=== PATIENT | female | born 1950 | race Caucasian/White ===

== ENCOUNTER 2016-02-26 11:08 | Emergency (ER) | payer MEDICAID ==
[2014-01-18 00:33] VITALS: BMI 28.4
[~2016-02-26 11:08] MED LIST: ACETAMINOPHEN500 M1 PO; COREG25 MG PO; CYMBALTA60 MG PO; DURAGESIC1 PATCH .1 TRANSDERM; FOLIC ACID1 MG PO; LASIX40 MG PO; LIBRIUM25 MG PO; LYRICA150 MG PO; MOBIC7.5 MG PO; PHENERGAN25 M1 PO; PLAQUENIL200 MG PO; SYNTHROID112 MCG PO; VITAMIN B-1100 M1 PO; ZOFRAN4 MG PO
[2016-02-26 11:54] LABS: AMORPHOUS SEDIMENT >1+ /lpf (NONE SEEN); APPEARANCE CLEAR (CLEAR); BACTERIA FEW /hpf (NONE SEEN); BILIRUBIN NEGATIVE (NEGATIVE); COLOR YELLOW (YELLOW); EPITHELIAL CELLS 0-5 /hpf (0-5); GLUCOSE NEGATIVE (NEGATIVE); KETONE MODERATE mg/dL (NEGATIVE); LEUKOCYTE ESTERASE NEGATIVE (NEGATIVE); MUCUS <1+ /lpf (NONE SEEN); NITRITE NEGATIVE (NEGATIVE); PROTEIN TRACE mg/dL (NEGATIVE); RED CELLS - URINE 0-5 /hpf (0-5); SPECIFIC GRAVITY 1.015 (1.005-1.020); UROBILINOGEN NORMAL (NORMAL); WHITE CELLS - URINE OCC /hpf (0-5)
[2016-02-26 11:55] LABS: BASOPHILS 0.7 % (0.0-2.0); EOSINOPHILS 0.4 % (0-7); HEMATOCRIT 44.6 % (36.0-48.0); HEMOGLOBIN 15.2 g/dL (12-16); IMMATURE GRANULOCYTES 0.4 % (0-5); LYMPHOCYTES 17.3 % (15-50); MCH 32.1 pg (26.0-34.0); MCHC 34.1 g/dL (31.0-37.0); MCV 94.3 fL (80.0-100.0); MEAN PLATELET VOLUME 9.6 fL (7.4-10.4); MONOCYTES 8.9 % (2-11); NEUTROPHILS 72.3 % (40-80); RBC 4.73 10x6/uL (4.00-5.40); RDW 11.5 % (11.5-14.5); WBC 9.8 10x3/uL (4.8-10.8)
[2016-02-26 11:57] LABS: PLATELET COUNT 224 10x3/uL (130-400)
[2016-02-26 12:22] LABS: ALBUMIN 4.1 g/dL (3.4-5.0); ALKALINE PHOSPHATASE 76 U/L (46-116); ALT (SGPT) 119 U/L (10-68); BILIRUBIN - TOTAL 0.59 mg/dL (0.2-1.3); CALC OSMOLALITY 269 mosm/kg (275-300); CALCIUM 9.2 mg/dL (8.5-10.1); CARBON DIOXIDE 25.2 mmol/L (21.0-32.0); CHLORIDE - SERUM 91 mmol/L (98-107); CREATININE - SERUM 0.7 mg/dL (0.6-1.3); POTASSIUM - SERUM 3.2 mmol/L (3.5-5.1); PROTEIN - SERUM 6.9 g/dL (6.4-8.2); SODIUM 135 mmol/L (136-145); UREA NITROGEN 22 mg/dL (7-18); eGFR NON AFRICAN AMERICAN 89 mL/min (90-120)
[2016-02-26 12:28] LABS: GLUCOSE 41 mg/dL (74-106)
== END 2016-02-26 17:44 | disposition home or self-care (01) ==
LOC: D.ER 11:08
PROVIDERS: Emergency Medicine; Physician Assistant Medical
DX: I95.9 Hypotension, unspecified (principal); E86.0 Dehydration; E16.2 Hypoglycemia, unspecified; M79.7 Fibromyalgia; E05.90 Thyrotoxicosis, unspecified without thyrotoxic crisis or storm; I10 Essential (primary) hypertension

== ENCOUNTER → 2016-03-06 09:47 | Outpatient (CLI) | payer MEDICAID ==
[2014-01-18 00:33] VITALS: BMI 28.4
== END | disposition home or self-care (01) ==
LOC: D.MRI 09:47
DX: R42 Dizziness and giddiness (principal)

== ENCOUNTER 2016-04-04 17:25 | Emergency (ER) | payer MEDICAID ==
[2014-01-18 00:33] VITALS: BMI 28.4
[2016-04-04 18:34] LABS: BASOPHILS 1.4 % (0.0-2.0); EOSINOPHILS 0.8 % (0-7); HEMATOCRIT 41.5 % (36.0-48.0); HEMOGLOBIN 14.2 g/dL (12-16); IMMATURE GRANULOCYTES 0.6 % (0-5); MCH 33.6 pg (26.0-34.0); MCHC 34.2 g/dL (31.0-37.0); MCV 98.3 fL (80.0-100.0); MEAN PLATELET VOLUME 8.9 fL (7.4-10.4); MONOCYTES 6.8 % (2-11); NEUTROPHILS 66.4 % (40-80); PLATELET COUNT 214 10x3/uL (130-400); RBC 4.22 10x6/uL (4.00-5.40); RDW 14.6 % (11.5-14.5); WBC 6.5 10x3/uL (4.8-10.8)
[2016-04-04 19:22] LABS: ALBUMIN 3.8 g/dL (3.4-5.0); ALKALINE PHOSPHATASE 166 U/L (46-116); ALT (SGPT) 187 U/L (10-68); BILIRUBIN - TOTAL 0.28 mg/dL (0.2-1.3); CALC OSMOLALITY 286 mosm/kg (275-300); CALCIUM 8.7 mg/dL (8.5-10.1); CHLORIDE - SERUM 102 mmol/L (98-107); CREATININE - SERUM 0.5 mg/dL (0.6-1.3); POTASSIUM - SERUM 3.4 mmol/L (3.5-5.1); PROTEIN - SERUM 6.4 g/dL (6.4-8.2); SODIUM 144 mmol/L (136-145); UREA NITROGEN 11 mg/dL (7-18); eGFR NON AFRICAN AMERICAN > 90 mL/min (90-120)
[2016-04-04 19:24] LABS: GLUCOSE 115 mg/dL (74-106)
[2016-04-04 22:59] LABS: APPEARANCE CLEAR (CLEAR); BILIRUBIN NEGATIVE (NEGATIVE); COLOR YELLOW (YELLOW); GLUCOSE NEGATIVE (NEGATIVE); KETONE NEGATIVE (NEGATIVE); LEUKOCYTE ESTERASE NEGATIVE (NEGATIVE); NITRITE NEGATIVE (NEGATIVE); PROTEIN NEGATIVE (NEGATIVE); SPECIFIC GRAVITY 1.015 (1.005-1.020); UROBILINOGEN NORMAL (NORMAL)
== END 2016-04-05 00:30 | disposition home or self-care (01) ==
LOC: D.ER 17:25
PROVIDERS: Family Medicine
DX: F10.10 Alcohol abuse, uncomplicated (principal); F32.9 Major depressive disorder, single episode, unspecified; E83.42 Hypomagnesemia; E87.6 Hypokalemia; M79.7 Fibromyalgia; I10 Essential (primary) hypertension; E05.90 Thyrotoxicosis, unspecified without thyrotoxic crisis or storm; F17.200 Nicotine dependence, unspecified, uncomplicated

== ENCOUNTER 2016-04-09 12:56 | Emergency (ER) | payer MEDICAID ==
[2014-01-18 00:33] VITALS: BMI 28.4
[2016-04-09 14:24] LABS: BASOPHILS 0.2 % (0.0-2.0); EOSINOPHILS 0.1 % (0-7); HEMATOCRIT 42.4 % (36.0-48.0); HEMOGLOBIN 14.3 g/dL (12-16); IMMATURE GRANULOCYTES 0.3 % (0-5); MCH 33.8 pg (26.0-34.0); MCHC 33.7 g/dL (31.0-37.0); MCV 100.2 fL (80.0-100.0); MEAN PLATELET VOLUME 9.6 fL (7.4-10.4); MONOCYTES 5.9 % (2-11); NEUTROPHILS 87.5 % (40-80); PLATELET COUNT 188 10x3/uL (130-400); RBC 4.23 10x6/uL (4.00-5.40); RDW 15.6 % (11.5-14.5); WBC 14.6 10x3/uL (4.8-10.8)
[2016-04-09 14:33] LABS: ALBUMIN 3.9 g/dL (3.4-5.0); ALKALINE PHOSPHATASE 120 U/L (46-116); ALT (SGPT) 137 U/L (10-68); BILIRUBIN - TOTAL 0.37 mg/dL (0.2-1.3); CALC OSMOLALITY 283 mosm/kg (275-300); CALCIUM 8.6 mg/dL (8.5-10.1); CARBON DIOXIDE 28.2 mmol/L (21.0-32.0); CHLORIDE - SERUM 102 mmol/L (98-107); CREATININE - SERUM 0.5 mg/dL (0.6-1.3); GLUCOSE 79 mg/dL (74-106); POTASSIUM - SERUM 4.2 mmol/L (3.5-5.1); PROTEIN - SERUM 6.7 g/dL (6.4-8.2); SODIUM 143 mmol/L (136-145); UREA NITROGEN 13 mg/dL (7-18); eGFR NON AFRICAN AMERICAN > 90 mL/min (90-120)
== END 2016-04-09 20:42 | disposition home or self-care (01) ==
LOC: D.ER 12:56
PROVIDERS: Physician Assistant
DX: T23.201A Burn of second degree of right hand, unspecified site, initial encounter (principal); T22.20XA Burn of second degree of shoulder and upper limb, except wrist and hand, unspecified site, initial encounter; T21.22XA Burn of second degree of abdominal wall, initial encounter; X16.XXXA Contact with hot heating appliances, radiators and pipes, initial encounter; Y93.89 Activity, other specified; Y92.012 Bathroom of single-family (private) house as the place of occurrence of the external cause; S01.81XA Laceration without foreign body of other part of head, initial encounter; M54.5 Low back pain; R22.9 Localized swelling, mass and lump, unspecified; F10.10 Alcohol abuse, uncomplicated; F32.9 Major depressive disorder, single episode, unspecified; I10 Essential (primary) hypertension; E05.90 Thyrotoxicosis, unspecified without thyrotoxic crisis or storm; E83.42 Hypomagnesemia; E87.6 Hypokalemia; F17.200 Nicotine dependence, unspecified, uncomplicated

== ENCOUNTER → 2016-04-23 16:48 | Outpatient (CLI) | payer MEDICAID ==
[2014-01-18 00:33] VITALS: BMI 28.4
[2016-04-23 21:13] LABS: CALC OSMOLALITY 279 mosm/kg (275-300); CARBON DIOXIDE 29.9 mmol/L (21.0-32.0); CHLORIDE - SERUM 99 mmol/L (98-107); CREATININE - SERUM 0.6 mg/dL (0.6-1.3); GLUCOSE 70 mg/dL (74-106); POTASSIUM - SERUM 5.3 mmol/L (3.5-5.1); SODIUM 141 mmol/L (136-145); UREA NITROGEN 14 mg/dL (7-18); eGFR NON AFRICAN AMERICAN > 90 mL/min (90-120)
== END | disposition home or self-care (01) ==
LOC: D.LABREF 16:48
PROVIDERS: Family Medicine
DX: T30.0 Burn of unspecified body region, unspecified degree (principal)

== ENCOUNTER → 2016-04-29 14:47 | Outpatient (CLI) | payer OTHER, MEDICAID ==
[2014-01-18 00:33] VITALS: BMI 28.4
[2016-04-29 16:00] LABS: CALC OSMOLALITY 283 mosm/kg (275-300); CALCIUM 8.6 mg/dL (8.5-10.1); CARBON DIOXIDE 30.3 mmol/L (21.0-32.0); CHLORIDE - SERUM 104 mmol/L (98-107); CREATININE - SERUM 0.5 mg/dL (0.6-1.3); GLUCOSE 71 mg/dL (74-106); POTASSIUM - SERUM 4.1 mmol/L (3.5-5.1); SODIUM 143 mmol/L (136-145); UREA NITROGEN 14 mg/dL (7-18); eGFR NON AFRICAN AMERICAN > 90 mL/min (90-120)
== END | disposition home or self-care (01) ==
LOC: D.LABREF 14:47
PROVIDERS: Family Medicine
DX: T22.031A Burn of unspecified degree of right upper arm, initial encounter (principal); T23.201A Burn of second degree of right hand, unspecified site, initial encounter; I10 Essential (primary) hypertension

== ENCOUNTER 2016-05-13 16:33 | Emergency (ER) | payer MEDICARE, MEDICAID ==
[2014-01-18 00:33] VITALS: BMI 28.4
[2016-05-13 17:17] LABS: BASOPHILS 0.7 % (0.0-2.0); EOSINOPHILS 0.3 % (0-7); HEMATOCRIT 35.3 % (36.0-48.0); HEMOGLOBIN 12.2 g/dL (12-16); IMMATURE GRANULOCYTES 0.9 % (0-5); LYMPHOCYTES 28.4 % (15-50); MCH 33.6 pg (26.0-34.0); MCHC 34.6 g/dL (31.0-37.0); MCV 97.2 fL (80.0-100.0); MEAN PLATELET VOLUME 9.3 fL (7.4-10.4); NEUTROPHILS 63.7 % (40-80); RBC 3.63 10x6/uL (4.00-5.40); RDW 14.7 % (11.5-14.5)
[2016-05-13 17:23] LABS: PLATELET COUNT 246 10x3/uL (130-400)
[2016-05-13 17:39] LABS: APPEARANCE CLOUDY (CLEAR); BILIRUBIN NEGATIVE (NEGATIVE); COLOR YELLOW (YELLOW); GLUCOSE NEGATIVE (NEGATIVE); KETONE MODERATE mg/dL (NEGATIVE); LEUKOCYTE ESTERASE 2+ (NEGATIVE); NITRITE POSITIVE (NEGATIVE); PROTEIN TRACE mg/dL (NEGATIVE); SPECIFIC GRAVITY 1.015 (1.005-1.020); UROBILINOGEN NORMAL (NORMAL)
[2016-05-13 17:41] LABS: BACTERIA MODERATE /hpf (NONE SEEN); RED CELLS - URINE 0-5 /hpf (0-5); WHITE CELLS - URINE 25-50 /hpf (0-5)
[2016-05-13 17:43] LABS: UDS - AMPHET NEGATIVE QUAL (NEGATIVE); UDS - BARB NEGATIVE QUAL (NEGATIVE); UDS - BENZO POSITIVE QUAL (NEGATIVE); UDS - COCAINE NEGATIVE QUAL (NEGATIVE); UDS - METH NEGATIVE QUAL (NEGATIVE); UDS - OPIATE NEGATIVE QUAL (NEGATIVE); UDS - PCP NEGATIVE QUAL (NEGATIVE); UDS - THC NEGATIVE QUAL (NEGATIVE)
[2016-05-13 17:58] LABS: ALBUMIN 3.2 g/dL (3.4-5.0); ALKALINE PHOSPHATASE 84 U/L (46-116); ALT (SGPT) 35 U/L (10-68); BILIRUBIN - TOTAL 0.26 mg/dL (0.2-1.3); CALC OSMOLALITY 276 mosm/kg (275-300); CALCIUM 8.6 mg/dL (8.5-10.1); CARBON DIOXIDE 27.5 mmol/L (21.0-32.0); CHLORIDE - SERUM 100 mmol/L (98-107); CREATININE - SERUM 0.5 mg/dL (0.6-1.3); GLUCOSE 83 mg/dL (74-106); POTASSIUM - SERUM 3.2 mmol/L (3.5-5.1); SODIUM 140 mmol/L (136-145); UREA NITROGEN 10 mg/dL (7-18); eGFR NON AFRICAN AMERICAN > 90 mL/min (90-120)
[2016-05-13 18:06] LABS: INR 0.9 (0.85-1.17)
== END 2016-05-14 00:57 | disposition home or self-care (01) ==
LOC: D.ER 16:33
PROVIDERS: Emergency Medicine
DX: F10.129 Alcohol abuse with intoxication, unspecified (principal); N39.0 Urinary tract infection, site not specified; Z91.81 History of falling; M79.7 Fibromyalgia; I10 Essential (primary) hypertension; E87.6 Hypokalemia; E83.42 Hypomagnesemia; R00.0 Tachycardia, unspecified

== ENCOUNTER 2016-05-14 19:40 | Emergency (ER) | payer MEDICARE, MEDICAID ==
[2014-01-18 00:33] VITALS: BMI 28.4
[2016-05-14 20:37] LABS: ALBUMIN 3.6 g/dL (3.4-5.0); ALKALINE PHOSPHATASE 94 U/L (46-116); ALT (SGPT) 41 U/L (10-68); BILIRUBIN - TOTAL 0.25 mg/dL (0.2-1.3); CALCIUM 8.4 mg/dL (8.5-10.1); CARBON DIOXIDE 27.3 mmol/L (21.0-32.0); CHLORIDE - SERUM 104 mmol/L (98-107); CREATININE - SERUM 0.5 mg/dL (0.6-1.3); GLUCOSE 84 mg/dL (74-106); POTASSIUM - SERUM 3.3 mmol/L (3.5-5.1); PROTEIN - SERUM 6.6 g/dL (6.4-8.2); SODIUM 147 mmol/L (136-145); eGFR NON AFRICAN AMERICAN > 90 mL/min (90-120)
[2016-05-14 20:39] LABS: CALC OSMOLALITY 288 mosm/kg (275-300); UREA NITROGEN 6 mg/dL (7-18)
[2016-05-14 20:44] LABS: AMYLASE - SERUM 43 U/L (25-115); LIPASE 549 U/L (73-393); PRO BNP 519 pg/mL (0-125); THYROID STIMULATING HORMONE 1.87 uIU/mL (0.36-3.74)
[2016-05-14 20:46] LABS: TROPONIN-I < 0.017 ng/mL (0.000-0.060)
[2016-05-14 21:23] LABS: BASOPHILS 1.9 % (0.0-2.0); EOSINOPHILS 0.3 % (0-7); HEMATOCRIT 39.9 % (36.0-48.0); HEMOGLOBIN 13.5 g/dL (12-16); LYMPHOCYTES 41.3 % (15-50); MCH 33.3 pg (26.0-34.0); MCHC 33.8 g/dL (31.0-37.0); MCV 98.5 fL (80.0-100.0); MEAN PLATELET VOLUME 9.8 fL (7.4-10.4); MONOCYTES 9.1 % (2-11); NEUTROPHILS 46.4 % (40-80); PLATELET COUNT 280 10x3/uL (130-400); RBC 4.05 10x6/uL (4.00-5.40); WBC 5.9 10x3/uL (4.8-10.8)
[2016-05-14 21:55] LABS: UDS - AMPHET NEGATIVE QUAL (NEGATIVE); UDS - BARB NEGATIVE QUAL (NEGATIVE); UDS - BENZO NEGATIVE QUAL (NEGATIVE); UDS - COCAINE NEGATIVE QUAL (NEGATIVE); UDS - METH NEGATIVE QUAL (NEGATIVE); UDS - OPIATE NEGATIVE QUAL (NEGATIVE); UDS - PCP NEGATIVE QUAL (NEGATIVE); UDS - THC NEGATIVE QUAL (NEGATIVE)
== END 2016-05-14 23:50 | disposition home or self-care (01) ==
LOC: D.ER 19:40
PROVIDERS: Family Medicine
DX: F10.10 Alcohol abuse, uncomplicated (principal); R41.82 Altered mental status, unspecified; M79.7 Fibromyalgia; I10 Essential (primary) hypertension; E05.90 Thyrotoxicosis, unspecified without thyrotoxic crisis or storm; E87.6 Hypokalemia; E83.42 Hypomagnesemia

== ENCOUNTER 2016-05-16 12:12 | Emergency (ER) | payer MEDICARE, MEDICAID ==
[2014-01-18 00:33] VITALS: BMI 28.4
== END 2016-05-16 13:20 | disposition home or self-care (01) ==
LOC: D.ER 12:12
DX: F10.10 Alcohol abuse, uncomplicated (principal); M79.7 Fibromyalgia; I10 Essential (primary) hypertension; E05.90 Thyrotoxicosis, unspecified without thyrotoxic crisis or storm; E16.2 Hypoglycemia, unspecified; E87.6 Hypokalemia; E83.42 Hypomagnesemia

== ENCOUNTER → 2016-06-06 16:00 | Outpatient (CLI) | payer MEDICARE, BC ==
[2014-01-18 00:33] VITALS: BMI 28.4
[2016-06-06 18:39] LABS: ALBUMIN 3.2 g/dL (3.4-5.0); ALKALINE PHOSPHATASE 72 U/L (46-116); ALT (SGPT) 26 U/L (10-68); BILIRUBIN - TOTAL 0.17 mg/dL (0.2-1.3); CALC OSMOLALITY 274 mosm/kg (275-300); CALCIUM 8.9 mg/dL (8.5-10.1); CARBON DIOXIDE 26.7 mmol/L (21.0-32.0); CHLORIDE - SERUM 103 mmol/L (98-107); CREATININE - SERUM 0.6 mg/dL (0.6-1.3); POTASSIUM - SERUM 4.3 mmol/L (3.5-5.1); PROTEIN - SERUM 6.5 g/dL (6.4-8.2); SODIUM 139 mmol/L (136-145); UREA NITROGEN 11 mg/dL (7-18); eGFR NON AFRICAN AMERICAN > 90 mL/min (90-120)
[2016-06-06 18:45] LABS: GLUCOSE 69 mg/dL (74-106)
== END | disposition home or self-care (01) ==
LOC: D.LABREF 16:00
PROVIDERS: Family Medicine
DX: E87.6 Hypokalemia (principal)

== ENCOUNTER → 2017-02-27 12:33 | Outpatient (CLI) | payer MEDICARE, OTHER ==
[2014-01-18 00:33] VITALS: BMI 28.4
[~2017-02-27 12:33] MED LIST changes: +AZULFIDINE500 MG; +BACLOFEN10 MG PO; +BUSPAR10 MG PO; +COREG6.25 MG; +CYMBALTA30 MG PO; +FLAGYL500 MG PO; +HYDROCODON-ACE1 EAC9 PO; +LIBRIUM5 MG PO; +Levaquin PO; +MAG-OX 400 MG400 MG PO; +NEURONTIN 300300 MG PO; +SYNTHROID100 MCG PO; +TRAZODONE HCL150 MG PO; +VOLTAREN75 MG PO; +ZANAFLEX4 MG PO
== END | disposition home or self-care (01) ==
LOC: D.CT 12:33
DX: R05 Cough (principal)

== ENCOUNTER 2017-03-19 14:02 | Inpatient (IN) | payer MEDICARE, OTHER ==
[~2017-03-19] VITALS: Ht 157.5 cm; Wt 53.8 kg
--- NOTE | ~2017-03-19 | DS ---
PATIENT:FATMATA DESAI :52 MEDICAL RECORD: [id number] DISCHARGE SUMMARY ADMISSION DATE: 03/19/17 DISCHARGE DATE: 03/22/17 DATE OF ADMISSION: 03/19/2017 DATE OF DISCHARGE: 03/22/2017 ADMISSION DIAGNOSES: Colitis, diarrhea, hypotension, leukocytosis, dehydration. DISCHARGE DIAGNOSES: Colitis, dehydration, leukocytosis. HOSPITAL COURSE: The patient was admitted to the Emergency Room with worsening diarrhea, fever, and chills. CT scan showed colitis. Stool cultures negative to date. GI consulted. The patient was hydrated with IV fluids. Symptoms have significantly improved. She is feeling much better, is anxious to go home, has been changed to oral antibiotics, tolerating well. 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 The patient is discharged home in significantly improved condition, tolerating diet, and ambulating independently. PHYSICAL EXAMINATION: VITAL SIGNS ON DISCHARGE: Temp 98.1, blood pressure 145/86, heart rate 79, respirations 19, O2 sat is 96% on room air. White count normalized at 7.6, hemoglobin 10.9, hematocrit 33.2, platelets of 212. GENERAL: The patient is alert, oriented, no distress. Again, anxious to go home. HEART: Regular rate and rhythm. LUNGS: Clear. ABDOMEN: Soft, nontender. EXTREMITIES: Present times 4. NEUROLOGIC: Intact. DISPOSITION: The patient is discharged home in significantly improved condition. DISCHARGE MEDICATIONS: Per med rec. We will follow up with Dr. Carbone in 1 week. DISCHARGE INSTRUCTIONS: The patient will follow up with gastroenterology as scheduled. Please see chart for further details. TRANSINT:[id number] Voice Confirmation ID: [id number] DOCUMENT ID: [id number] MICHELLE MICHAEL DO at 1430 CC: [id number] DICTATION DATE: 03/22/17 0840 OVAL OR CIRCULAR GLASS CUTTER: 03/22/17 1614 DIS IN 03/22/17 [facility] [address] [place] [address]
[~2017-03-19 14:02] MED LIST changes: -AZULFIDINE500 MG; -BACLOFEN10 MG PO; -BUSPAR10 MG PO; -COREG6.25 MG; -CYMBALTA30 MG PO; -FLAGYL500 MG PO; -HYDROCODON-ACE1 EAC9 PO; -LIBRIUM5 MG PO; -Levaquin PO; -MAG-OX 400 MG400 MG PO; -NEURONTIN 300300 MG PO; -SYNTHROID100 MCG PO; -TRAZODONE HCL150 MG PO; -VOLTAREN75 MG PO; -ZANAFLEX4 MG PO
[2017-03-19 17:11] LABS: INR 1.54 (0.85-1.17)
[2017-03-19 17:12] LABS: APTT 36.7 SECONDS (22.8-39.4)
[2017-03-19 17:21] LABS: ALBUMIN 2.7 g/dL (3.4-5.0); ANION GAP 17.8 mmol/L (8-16); BILIRUBIN - TOTAL 0.2 mg/dL (0.2-1.3); CALCIUM 7.8 mg/dL (8.5-10.1); CARBON DIOXIDE 21.1 mmol/L (21.0-32.0); POTASSIUM - SERUM 3.9 mmol/L (3.5-5.1); PROTEIN - SERUM 5.8 g/dL (6.4-8.2)
[2017-03-19 17:40] LABS: BASOPHILS 0.1 % (0-2); EOSINOPHILS 0 % (0-7); HEMATOCRIT 35.7 % (36.0-48.0); HEMOGLOBIN 11.7 g/dL (12-16); IMMATURE GRANULOCYTES 1.5 % (0-5); LYMPHOCYTES 4.1 % (15-50); MCH 29.5 pg (26.0-34.0); MCHC 32.8 g/dL (31.0-37.0); MCV 89.9 fL (80.0-100.0); MEAN PLATELET VOLUME 11.1 fL (7.4-10.4); MONOCYTES 5.9 % (2-11); NEUTROPHILS 88.4 % (40-80); PLATELET COUNT 157 10x3/uL (130-400); RBC 3.97 10x6/uL (4.00-5.40); RDW 15.3 % (11.5-14.5); WBC 17.9 10x3/uL (4.8-10.8)
[2017-03-19 21:30] VITALS: BP 98/59
[2017-03-20 01:34] VITALS: BP 98/59; BMI 19.2
[2017-03-20] MEDS ORDERED: CYMBALTA30 MG PO (03:56)
[2017-03-20] MEDS ORDERED: CYMBALTA60 MG PO (03:56)
[2017-03-20] MEDS ORDERED: SYNTHROID100 MCG PO (03:57)
[2017-03-20] MEDS ORDERED: NEURONTIN 300300 MG PO (03:57)
[2017-03-20 04:00] VITALS: BP 102/55
[2017-03-20] MEDS ORDERED: VOLTAREN75 MG PO (04:02)
[2017-03-20] MEDS ORDERED: PLAQUENIL200 MG PO (04:02)
[2017-03-20] MEDS ORDERED: COREG6.25 MG (04:02)
[2017-03-20] MEDS ORDERED: AZULFIDINE500 MG (04:02)
[2017-03-20] MEDS ORDERED: TRAZODONE HCL150 MG PO (04:03)
[2017-03-20] MEDS ORDERED: ZANAFLEX4 MG PO (04:03)
[2017-03-20] MEDS ORDERED: HYDROCODON-ACE1 EAC9 PO (04:05)
[2017-03-20] MEDS ORDERED: LIBRIUM5 MG PO (04:06)
[2017-03-20] MEDS ORDERED: BACLOFEN10 MG PO (04:07)
[2017-03-20] MEDS ORDERED: BUSPAR10 MG PO (04:07)
[2017-03-20 05:51] LABS: APPEARANCE HAZY (CLEAR); BILIRUBIN NEGATIVE (NEGATIVE); COLOR YELLOW (YELLOW); GLUCOSE NEGATIVE (NEGATIVE); KETONE NEGATIVE (NEGATIVE); NITRITE NEGATIVE (NEGATIVE); PROTEIN 2+ mg/dL (NEGATIVE); UROBILINOGEN NORMAL (NORMAL)
[2017-03-20 05:53] LABS: BACTERIA FEW /hpf (NONE SEEN); EPITHELIAL CELLS 0-5 /hpf (0-5); RED CELLS - URINE 0-5 /hpf (0-5); WHITE CELLS - URINE 0-5 /hpf (0-5)
[2017-03-20 08:09] VITALS: BP 98/58
[2017-03-20 08:46] LABS: ALBUMIN 2.7 g/dL (3.4-5.0); BILIRUBIN - TOTAL 0.2 mg/dL (0.2-1.3); CALCIUM 8.1 mg/dL (8.5-10.1); CARBON DIOXIDE 22.6 mmol/L (21.0-32.0); PROTEIN - SERUM 5.8 g/dL (6.4-8.2)
[2017-03-20 08:48] LABS: HEMATOCRIT 33.4 % (36.0-48.0); HEMOGLOBIN 10.9 g/dL (12-16); MCHC 32.6 g/dL (31.0-37.0); MCV 88.8 fL (80.0-100.0); MEAN PLATELET VOLUME 10.7 fL (7.4-10.4); PLATELET COUNT 193 10x3/uL (130-400); RBC 3.76 10x6/uL (4.00-5.40); RDW 15.4 % (11.5-14.5); WBC 22.8 10x3/uL (4.8-10.8)
[2017-03-20 08:56] LABS: ANION GAP 14.7 mmol/L (8-16); CREATININE - SERUM 1.2 mg/dL (0.6-1.3); POTASSIUM - SERUM 3.3 mmol/L (3.5-5.1)
[2017-03-20 10:17] LABS: LYMPHOCYTES 2 % (15-50); MONOCYTES 2 % (2-11); NEUTROPHILS 92 % (40-80)
[2017-03-20 10:19] LABS: CRENATED CELLS OCC; ROULEAUX OCC; VACUOLES OCC
[2017-03-20 10:20] LABS: PLATELET ESTIMATE NORMAL; POIKILOCYTOSIS OCC
[2017-03-20 10:23] LABS: TEAR DROP CELLS OCC
[2017-03-20 12:45] VITALS: BP 110/56
[2017-03-20 12:47] VITALS: Ht 157.5 cm; Wt 53.8 kg
[2017-03-20 16:28] VITALS: BP 99/67
[2017-03-20 22:57] VITALS: BP 102/65
[2017-03-21] VITALS (7 sets, daily range): BP systolic 77–158; BP diastolic 40–84
[2017-03-21 04:24] LABS: BASOPHILS 0.1 % (0-2); EOSINOPHILS 1.6 % (0-7); HEMATOCRIT 32.3 % (36.0-48.0); HEMOGLOBIN 10.6 g/dL (12-16); IMMATURE GRANULOCYTES 0.2 % (0-5); LYMPHOCYTES 9.3 % (15-50); MCHC 32.8 g/dL (31.0-37.0); MCV 88.5 fL (80.0-100.0); MEAN PLATELET VOLUME 10.8 fL (7.4-10.4); MONOCYTES 4.1 % (2-11); NEUTROPHILS 84.7 % (40-80); PLATELET COUNT 208 10x3/uL (130-400); RBC 3.65 10x6/uL (4.00-5.40); RDW 15.5 % (11.5-14.5)
[2017-03-21 04:29] LABS: WBC 14.3 10x3/uL (4.8-10.8)
[2017-03-21 04:42] LABS: ALBUMIN 2.5 g/dL (3.4-5.0); ANION GAP 14.5 mmol/L (8-16); BILIRUBIN - TOTAL 0.18 mg/dL (0.2-1.3); CALCIUM 8.3 mg/dL (8.5-10.1); CARBON DIOXIDE 19.8 mmol/L (21.0-32.0); CREATININE - SERUM 0.9 mg/dL (0.6-1.3); MAGNESIUM - SERUM 1.7 mg/dL (1.8-2.4); PHOSPHOROUS 2.5 mg/dL (2.5-4.9); POTASSIUM - SERUM 3.3 mmol/L (3.5-5.1); PROTEIN - SERUM 5.6 g/dL (6.4-8.2)
[2017-03-22 04:00] VITALS: BP 145/86
[2017-03-22 05:56] LABS: BASOPHILS 0.4 % (0-2); EOSINOPHILS 3.5 % (0-7); HEMATOCRIT 33.2 % (36.0-48.0); HEMOGLOBIN 10.9 g/dL (12-16); IMMATURE GRANULOCYTES 0.1 % (0-5); LYMPHOCYTES 22.5 % (15-50); MCHC 32.8 g/dL (31.0-37.0); MCV 88.3 fL (80.0-100.0); MEAN PLATELET VOLUME 10.8 fL (7.4-10.4); MONOCYTES 6.7 % (2-11); NEUTROPHILS 66.8 % (40-80); PLATELET COUNT 212 10x3/uL (130-400); RBC 3.76 10x6/uL (4.00-5.40); RDW 15.7 % (11.5-14.5)
[2017-03-22 05:57] LABS: WBC 7.6 10x3/uL (4.8-10.8)
[2017-03-22 06:03] LABS: ALBUMIN 2.6 g/dL (3.4-5.0); ANION GAP 14.1 mmol/L (8-16); BILIRUBIN - TOTAL 0.2 mg/dL (0.2-1.3); CALCIUM 8.4 mg/dL (8.5-10.1); CARBON DIOXIDE 21.4 mmol/L (21.0-32.0); CREATININE - SERUM 0.9 mg/dL (0.6-1.3); MAGNESIUM - SERUM 1.3 mg/dL (1.8-2.4); PHOSPHOROUS 2.6 mg/dL (2.5-4.9); POTASSIUM - SERUM 3.5 mmol/L (3.5-5.1); PROTEIN - SERUM 5.6 g/dL (6.4-8.2)
[2017-03-22] MEDS ORDERED: Levaquin PO (08:30)
[2017-03-22] MEDS ORDERED: FLAGYL500 MG PO (08:31)
[2017-03-22] MEDS ORDERED: MAG-OX 400 MG400 MG PO (08:34)
[2017-03-22 09:04] VITALS: BP 130/83
== END 2017-03-22 10:20 | disposition home or self-care (01) | DRG 392 ==
LOC: D.ER 14:02 → D.MS 18:29
PROVIDERS: Emergency Medicine; Family Medicine
DX: K52.9 Noninfective gastroenteritis and colitis, unspecified (principal); N17.9 Acute kidney failure, unspecified; E86.0 Dehydration; I95.9 Hypotension, unspecified; I10 Essential (primary) hypertension; M12.9 Arthropathy, unspecified

== ENCOUNTER → 2017-04-22 10:15 | Outpatient (CLI) | payer MEDICARE, OTHER ==
[2017-03-20 12:47] VITALS: BMI 19.2
--- NOTE | ~2017-04-22 | EC ---
PATIENT:FATMATA DESAI DATE OF SERVICE: 04/22/17 SEX: F MEDICAL RECORD: [id number] DATE OF : 52 LOCATION:D[facility] AGE OF PATIENT: 66 ADMISSION DATE: 04/22/17 REFERRING PHYSICIAN: INTERPRETING PHYSICIAN: KENRICK PLAZA MD ECHOCARDIOGRAM REPORT ECHO CHARGES 4 ECHO COMPLETE CLINICAL DIAGNOSIS: MURMUR/ANGINA/PALPITATIONS ECHOCARDIOGRAPHIC MEASUREMENTS (adult normal given) AC root (d.<3.7cm) 3.2 cm LV Septum d (<1.2 cm> 1.2 cm Valve Excursion 0.8 cm LV Septum (systole) 1.9 cm Left Atria (s.<4.0cm> 2.8 cm LVPW d(<1.2cm) 1.2 cm RV (d.<2.3cm) 1.9 cm LVPW (sytole) 2.0 cm LV diastole(<5.6CM) 5.3 cm MV E-F(>70mm/sec) cm LV systole 3.4 cm LVOT Diameter 1.8 cm MV exc.(>10mm) cm Est.ejection fraction (50-75%) % Pericardial Effusion N DOPPLER: LVIT cm/sec A 92.0 cm/sec E 122 cm/sec LA cm/sec RVSP 47.1 mmHg LVOT 101 cm/sec AOP1/2T 492.0m/s Asc. Ao 286 cm/sec RVOT 80.0 cm/sec RA cm/sec PA 116 cm/sec AV Gradient Peak 33.0 mmHg AV Mean 16.0 mmHg AV Area 0.9 cm MV Gradient Peak 5.9 mmHg MV Mean 2.2 mmHg MV Area cm COMMENTS: Acoustic Sensor Operator: Jane BARKSDALEOE Middleware Administrator: 4 Dr. Plaza TAPE# PACS DATE OF SERVICE: 04/22/2017 PROCEDURE: Transthoracic echocardiogram. FINDINGS: 1. The patient has concentric left ventricular hypertrophy with normal inflow characteristics. Ejection fraction of 55%. No obvious regional wall motion abnormalities. 2. The aortic valve is thickened and sclerotic with [id number]-[id number] aortic stenosis. The peak pressure gradient is 33 with mean gradient of 16 mmHg. ECHOCARDIOGRAM REPORT [id number] FATMATA DESAI 3. The mitral valve is grossly normal in structure. There is mild mitral regurgitation. 4. The left atrium is normal size, normal function. 5. The tricuspid valve has hdey-cn-xxynwgpi tricuspid regurgitation. RVSP of 47 mmHg. 6. The right atrium is normal size, normal function. CONCLUSION: The patient has mild aortic stenosis with mild ventricular hypertrophy and preserved LV systolic function. TRANSINT:[id number] Voice Confirmation ID: [id number] DOCUMENT ID: [id number] KENRICK PLAZA MD CC: [id number] DICTATION DATE: 04/22/17 1527 CINDER DUMP CRANE OPERATOR: 04/22/17 1839 [facility] [address] [place] [id number]
[~2017-04-22 10:15] MED LIST changes: +AZULFIDINE500 MG; +BACLOFEN10 MG PO; +BUSPAR10 MG PO; +COREG6.25 MG; +CYMBALTA30 MG PO; +FLAGYL500 MG PO; +HYDROCODON-ACE1 EAC9 PO; +LIBRIUM5 MG PO; +Levaquin PO; +MAG-OX 400 MG400 MG PO; +NEURONTIN 300300 MG PO; +SYNTHROID100 MCG PO; +TRAZODONE HCL150 MG PO; +VOLTAREN75 MG PO; +ZANAFLEX4 MG PO
== END | disposition home or self-care (01) ==
LOC: D.ECHO 10:15
DX: R01.1 Cardiac murmur, unspecified (principal); R07.9 Chest pain, unspecified; I20.9 Angina pectoris, unspecified; R00.2 Palpitations

== ENCOUNTER → 2017-05-07 15:19 | Outpatient (CLI) | payer MEDICARE, OTHER ==
[2017-03-20 12:47] VITALS: BMI 19.2
[~2017-05-07 15:19] MED LIST changes: +ALLEGRA-D1 TAB.SR1 PO; +AZELASTINE137 MCG/0. NASAL; +BAYER CHEWABLE81 MG PO; +BRILINTA90 MG PO; +CALCIUM 600 +1 EAC3 PO; -COREG6.25 MG; +COREG6.25 MG PO; +FLINTSTONE1 TAB.CHEW PO; +HYDRALAZINE HCL25 MG PO; +PLAVIX75 MG PO; +ZOFRAN8 MG PO
== END | disposition home or self-care (01) ==
LOC: D.US 15:19
DX: R10.2 Pelvic and perineal pain (principal)

== ENCOUNTER → 2017-05-10 08:51 | Outpatient (CLI) | payer MEDICARE, OTHER ==
[~2017-05-10] VITALS: Ht 157.5 cm; Wt 50.9 kg
--- NOTE | ~2017-05-10 | HEMODYNAMI ---
PATIENT:FATMATA DESAI MEDICAL RECORD: [id number] : 52 LOCATION:[facility] ADMISSION DATE: 05/10/17 Generatedon:05/10/201712:20 Patient name: FATMATA DESAI Patient #: [id number] SSN: DO B: 1950 Date of study: 05/10/2017 Page: Of Hemodynamic Procedure Report Patient Data Patient Demographics Procedure consent was obtained First Name: FATMATA Gender: Female Last Name: GISELLE : 1950 Middle Initial: HUMBERTO Age: 66 year(s) Patient #: [id number] Race: Unknown Additional ID: [id number] Contact details Address: [address] [place] [address] State: [place]: [facility] [place] code: [address] Past Medical History Allergies Allergen Reaction Date Comments Reported Other allergy 05/10/2017 CIPRO, CLINDAMYCIN, KEFLEX, MORPHINE, STATINS Admission Admission Data Admission Date: 05/10/2017 Admission Time: 8:51 Lab Results Lab Result Date: 05/10/2017 Lab Result Time: 0:00 Biochemistry Name Units Result Min Max BUN mg/dl 8 --(*---)-- 7 18 Creatinine mg/dl 0.7 --(*---)-- 0.6 1.3 CBC Name Units Result Min Max Hemoglobin g/dl 12.9 -*(----)-- 13.5 17.5 Procedure Procedure Types Cath Procedure Diagnostic Procedure LHC LH w/Coronaries Sedation Charges Moderate Sedation up to 45 minutes Procedure Description Procedure Date Procedure Date: 05/10/2017 Procedure Start Time: 10:52 Procedure End Time: 12:13 Procedure Staff Name Function Evan Plaza MD Performing Physician Merry Ross RT Monitor Orestes Barth RT Scrub Yifan Antony RN Nurse Skyler Vázquez MD Performing Physician Procedure Data Cath Procedure Fluoroscopy Diagnostic fluoroscopy Total fluoroscopy Time: 0 time: 0 min min Diagnostic fluoroscopy Total fluoroscopy dose: 470 dose: 470 mGy mGy Contrast Material Contrast Material Type Amount (ml) Isovue 300 107 Entry Location Entry Primary Successful Side Size Upsize Upsize Entry Closure Jackman ccessful Closure Location (Fr) 1 (Fr) 2 (Fr) Remarks Device Remarks Radial Right 6 Fr Mechanical artery Short Compression Femoral Right 7 Fr Exoseal artery Short Estimated blood loss: 10 ml Diagnostic catheters Device Type Used For End Catheter Placement DIAGNOSTIC Emil 110cm Procedure 5Fr catheter ([id number]) Procedure Complications No complications Procedure Medications Medication Administration Route Dosage 0.9% NaCl I.V. 100 ml/hr Oxygen NC 2 l/min Heparin Flush Bag added to field 2 bags (1000units/500ml NS) Lidocaine 2% added to field 20 Versed I.V. 3 mg Fentanyl I.V. 75 mcg Radial Cocktail added to field 1 syringe (Verapomil 2mg/Nitro 400mcg/Heparin 1500units) Versed I.V. 1 mg Fentanyl I.V. 25 mcg Radial Cocktail I.A. 1 syringe (Verapomil 2mg/Nitro 400mcg/Heparin 1500units) Angiomax (bolus) I.V. 7.5 ml Angiomax Drip I.V. drip 17.5 ml/hr (250mg/50ml NS) (Standard) Versed I.V. 2 mg Fentanyl I.V. 50 mcg Angiomax Drip I.V. drip 17.5 ml/hr (250mg/50ml NS) (Standard) Fentanyl I.V. 50 mcg Versed I.V. 2 mg Fentanyl I.V. 50 mcg Fentanyl I.V. 50 mcg Heparin Bolus I.V. 4000 units Fentanyl I.V. 50 mcg Hemodynamics Rest HGB: 12.9 (g/dl) Heart Rate: 79 (bpm) Snapshots Pre Cath Intra NCS Post Cath Vital Signs Time Heart Resp SPO2 etCO2 NIBP (mmHg) Rhythm Pain Sedation Rate (ipm) (%) (mmHg) Status Level (bpm) 10:29:15 80 18 99 161/85(133) NSR 0 (11) 10(A) , No pain 10:33:58 81 13 98 40.3 156/92(128) NSR 0 (11) 10(A) , No pain 10:38:42 81 17 98 44.8 151/81(116) NSR 0 (11) 10(A) , No pain 10:43:23 81 13 98 40.3 147/81(119) NSR 0 (11) 10(A) , No pain 10:48:04 81 16 96 41 141/84(118) NSR 0 (11) 10(A) , No pain 10:52:42 87 13 96 40.3 141/86(122) NSR 0 (11) 10(A) , No pain 10:57:23 83 16 96 41 142/83(115) NSR 0 (11) 10(A) , No pain 11:02:01 89 14 94 38 114/63(84) NSR 0 (11) 10(A) , No pain 11:06:34 96 12 94 39.5 125/80(92) NSR 0 (11) 10(A) , No pain 11:11:12 87 14 94 40.2 131/74(107) NSR 0 (11) 10(A) , No pain 11:15:51 83 16 95 35.8 134/74(103) NSR 0 (11) 10(A) , No pain 11:20:29 85 16 94 37.2 123/81(104) NSR 0 (11) 10(A) , No pain 11:25:06 86 17 94 43.2 136/75(110) NSR 0 (11) 10(A) , No pain 11:29:44 90 16 96 39.5 119/80(102) NSR 0 (11) 10(A) , No pain 11:34:21 85 13 94 42.5 129/70(98) NSR 0 (11) 10(A) , No pain 11:39:02 70 13 92 29 138/68(90) NSR 0 (11) 10(A) , No pain 11:43:42 85 13 94 31.3 129/72(93) NSR 0 (11) 10(A) , No pain 11:48:21 86 14 94 38.7 123/72(92) NSR 0 (11) 10(A) , No pain 11:53:04 94 18 96 11.1 124/70(111) NSR 0 (11) 10(A) , No pain 11:57:42 86 19 97 32 128/78(100) NSR 0 (11) 10(A) , No pain 12:02:20 87 18 97 17.1 121/75(94) NSR 0 (11) 10(A) , No pain 12:06:57 92 18 96 19.3 119/73(91) NSR 0 (11) 10(A) , No pain 12:11:35 94 11 95 40.2 119/68(97) NSR 0 (11) 10(A) , No pain Medications Time Medication Route Dose Verified Delivered Reason Note s Effectiveness by by 10:28:17 0.9% NaCl I.V. 100 Yifan Yifan Per physician ml/hr Arpan Antony RN RN 10:28:30 Oxygen NC 2 l/min Yifan Yifan Per physician Arpan Antony RN RN 10:28:41 Heparin Flush added 2 bags Yifan Yifan used for Bag to Arpan Antony procedure (1000units/500ml field RN RN NS) 10:28:54 Lidocaine 2% added 20ml Yifan Yifan for local to vial Lorigan Arpan anesthetic RN RN 10:45:56 Versed I.V. 3 mg Yifan Yifan for sedation Arpan Antony RN RN 10:46:12 Fentanyl I.V. 75 mcg Yifan Yifan for sedation Arpan Antony RN RN 10:50:56 Radial Cocktail added 1 Yifan Yifan used for (Verapomil to syringe Lorigan Lorigan procedure 2mg/Nitro RN RN 400mcg/Heparin 1500units) 10:56:59 Versed I.V. 1 mg Yifan Yifan for sedation Arpan Antony RN RN 10:57:08 Fentanyl I.V. 25 mcg Yifan Yifan for sedation Arpan Antony RN RN 11:00:22 Radial Cocktail I.A. 1 Yifan Evan for (Verapomil syringe Arpan Plaza MD vasodilation 2mg/Nitro RN 400mcg/Heparin 1500units) 11:15:25 Angiomax (bolus) I.V. 7.5 ml Yifan Yifan for Malikaigan Arpan anticoagulation RN RN 11:15:44 Angiomax Drip I.V. 17.5 Yifan Yifan for (250mg/50ml NS) drip ml/hr Arpan Antony anticoagulation (Standard) RN RN 11:19:50 Versed I.V. 2 mg Yifan Yifan for sedation Arpan Antony RN RN 11:19:57 Fentanyl I.V. 50 mcg Yifan Yifan for sedation Arpan Antony RN RN 11:25:23 Angiomax Drip I.V. 17.5 Yifan Yifan to sharp's (250mg/50ml NS) drip ml/hr Arpan Antony (Standard) RN RN 11:27:56 Fentanyl I.V. 50 mcg Yifan Yifan for sedation Arpan Antony RN RN 11:59:35 Versed I.V. 2 mg Yifan Yifan for sedation Arpan Antony RN RN 11:59:44 Fentanyl I.V. 50 mcg Yifan Yifan for sedation Arpan Antony RN RN 12:01:46 Fentanyl I.V. 50 mcg Yifan Yifan for sedation Arpan Antony RN RN 12:04:48 Heparin Bolus I.V. 4000 Yifan Yifan for units Arpan Antony anticoagulation RN RN 12:10:41 Fentanyl I.V. 50 mcg Yifan Yifan for sedation Arpan Antony RN machine sewer Log Time Note 10:08:36 Time tracking: Regular hours 10:08:43 Plan of Care:Hemodynamics will remain stable., Cardiac rhythm will remain stable., Comfort level will be maintained., Respiratory function will remain adequate., Patient/ family verbilizes understanding of procedure., Procedure tolerated without complication., Recovers from procedure without complications.. 10:08:47 Signed procedure consent form obtained from patient. 10:08:50 Yifan Antony RN sent for patient. Start room use. 10:09:41 H&P Date Dictated: 05/09/2017 Within 30 days and on chart., H&P Addendum completed by physician on day of procedure. (MUST COMPLETE FOR ALL OUTPATIENTS). 10:10:17 Patient allergic to Other allergyCIPRO, CLINDAMYCIN, KEFLEX, MORPHINE, STATINS 10:16:28 Patient received from Pre/Post Procedure Room to CCL 1 Alert and oriented. Tansferred to table in Supine position. 10:16:30 Warm blankets applied, and manas hugger turned on for patient comfort. 10:16:30 Correct patient and procedure confirmed by team. 10:16:31 ECG and BP/O2 sat monitors applied to patient. 10:16:56 Lab Result : Creatinine 0.7 mg/dl 10:16:56 Lab Result : BUN 8 mg/dl 10:16:56 Lab Result : Hemoglobin 12.9 g/dl 10:: 0.9% NaCl 100 ml/hr I.V. was administered by Yifan Antony RN; Per physician; :: Vital chart was started 10:: Baseline sample Acquired. 10:: Rhythm: sinus rhythm 10::24 Full Disclosure recording started 10:: Pre-procedure instructions explained to patient. 10:: Pre-op teaching completed and patient verbalized understanding. 10::28 Family in patients room. 10::29 Patient NPO since Midnight. 10::30 Oxygen 2 l/min NC was administered by Yifan Antony RN; Per physician; 10:28:31 Is the patient allergic to Iodine/contrast media? No. 10:28:32 Is patient on blood thinner?Yes 10:28:35 ACC The patient was administered the following blood thiners within the last 24 hours: ACCPlavix 10:28:36 Patient diabetic? No. 10:28:39 Previous problem with sedation/anesthesia? No ? 10:28:40 Snore? Yes 10:28:41 Heparin Flush Bag (1000units/500ml NS) 2 bags added to field was administered by Yifan Antony RN; used for procedure; 10:28:41 Sleep apnea? No 10:28:43 Deviated septum? No 10:28:43 Opens mouth fully? Yes 10:28:44 Sticks out tongue? Yes 10:28:46 Airway obstruction? No ? 10:28:50 Dentures? Yes in tight 10:28:54 Lidocaine 2% 20ml vial added to field was administered by Yifan Antony RN; for local anesthetic; 10:33:37 Modified Magno's test Ulnar < 7 seconds 10:33:42 Pre procedure: right dorsailis pedis pulse 2+ Normal; easily identifiable; not easily obliterated 10:33:45 Pre procedure: left dorsailis pedis pulse 2+ Normal; easily identifiable; not easily obliterated 10:33:51 Patient pain scale 0/10 ?. 10:34:26 IV patent on arrival in left forearm with 0.9% NaCl at [facility]. 10:34:30 Lab results completed and on chart. 10:34:34 Right Radial & Right Groin area was prepped with chlora-prep and draped in sterile fashion 10:34:35 Alarms reviewed by R. N. 10:34:35 Sharps counted by scrub and verified by R.N. 10:38:23 Physician paged 10:40:31 Zero performed for pressure channel P1 10:40:38 Zero performed for pressure channel P1 10:40:58 Zero performed for pressure channel P1 10:43:51 --------ALL STOP TIME OUT------ 10:43:51 Final Timeout: patient, procedure, and site verified with staff and physician. All members of the team are in agreement. 10:43:53 Right Radial & Right Groin site verified by team. 10:44:01 Physical assessment completed. ASA score P 2 - A patient with mild systemic disease as per Evan Plaza MD. 10:44:05 Sedation plan: IV Moderate Sedation Medication:Versed, Fentanyl 10:45:56 Versed 3 mg I.V. was administered by Yifan Antony RN; for sedation; 10:46:12 Fentanyl 75 mcg I.V. was administered by Yifan Antony RN; for sedation; 10:50:56 Radial Cocktail (Verapomil 2mg/Nitro 400mcg/Heparin 1500units) 1 syringe added to field was administered by Yifan Antony RN; used for procedure; 10:51:09 Use device set Radial Dx or PCI 10:51:11 ACIST Syringe (08712) opened to sterile field. 10:51:45 Medline Cath Pack ([id number]) opened to sterile field. 10:51:46 Bag Decanter () opened to sterile field. 10:51:48 ACIST Manifold (54745) opened to sterile field. 10:51:49 ACIST Hand Control (50804) opened to sterile field. 10:51:55 SHEATH 6FR Slender ([id number]) opened to sterile field. 10:51:55 DIAGNOSTIC WIRE .035 260cm J wire (575891) opened to sterile field. 10:52:01 Tegaderm 4 x 4 (1626W) opened to sterile field. 10:52:07 Procedure started. 10:52:50 Local anesthetic to right radial artery with Lidocaine 2% by Evan Plaza MD.INITIAL ACCESS ONLY 10:56:39 ORIGINALLY BOTH GROINS WERE PREPPED FOR POSSIBLE AFRO WITH A [facility]. PER DR. PLAZA TO GO RADIAL. RADIAL WAS ALSO PREPPED. 10:56:59 Versed 1 mg I.V. was administered by Yifan Antony RN; for sedation; 10:57:08 Fentanyl 25 mcg I.V. was administered by Yifan Antony RN; for sedation; 10:59:41 A 6 Fr Short sheath was inserted into the Right Radial artery 11:00:22 Radial Cocktail (Verapomil 2mg/Nitro 400mcg/Heparin 1500units) 1 syringe I.A. was administered by Evan Plaza MD; for vasodilation; 11:00:46 A DIAGNOSTIC Emil 110cm 5Fr catheter (292265) was advanced over the wire and used for Procedure. 11:03:02 LCA angiography performed. 11:04:15 RCA angiography performed. 11:05:34 Catheter removed. 11:05:40 INFLATOR Merit BasixCompak (RD3884) opened to sterile field. 11:05:45 COPILOT Valve Control (9425133) opened to sterile field. 11:08:38 BMW 190cm Kimberly 2 J wire ([id number]) opened to sterile field. 11:08:49 GUIDE 6FR ART 3.5 SH catheter ([id number]) opened to sterile field. 11:12:01 6 Fr ART 3.5 SH guide catheter was inserted over the wire 11:13:50 BMW 190 wire advanced. 11:15:17 Wire advanced across lesion. 11:15:25 Angiomax (bolus) 7.5 ml I.V. was administered by Yifan Antony RN; for anticoagulation; 11:15:44 Angiomax Drip (250mg/50ml NS) (Standard) 17.5 ml/hr I.V. drip was administered by Yifan Antony RN; for anticoagulation; 11:19:50 Versed 2 mg I.V. was administered by Yifan Antony RN; for sedation; 11:19:57 Fentanyl 50 mcg I.V. was administered by Yifan Antony RN; for sedation; 11:21:43 The EUPHORA 2.5 x 20 Balloon ([id number]) was advanced and then removed because of failure to cross lesion 11:22:51 Wire removed. 11:22:55 Balloon removed over the wire. 11:22:56 Guide catheter removed. 11:23:01 TR BAND Standard (LIQ80ATH) opened to sterile field. 11:24:57 Sheath removed intact; hemostasis achieved with Mechanical Compression to the Right Radial artery. 11:25:14 Procedure ended.(Physican Out) 11:25:23 Angiomax Drip (250mg/50ml NS) (Standard) 17.5 ml/hr I.V. drip was administered by Yifan Antony RN; to sharp's; 11:26:00 TR band inflated with 10cc of air. 11:27:56 Fentanyl 50 mcg I.V. was administered by Yifan Antony RN; for sedation; 11:28:[address] PLAZA. DR. VÁZQUEZ WILL PROCEED WITH PROCEDURE. 7F GROIN. .WILL REDRAPE PATIENT 11:41:46 Use device set CATH PACK 11:41:47 ACIST Syringe (98921) opened to sterile field. 11:41:48 ACIST Hand Control (85477) opened to sterile field. 11:41:49 ACIST Manifold (68916) opened to sterile field. 11:41:50 Bag Decanter (2002S) opened to sterile field. 11:41:52 Medline Cath Pack ([id number]) opened to sterile field. 11:41:53 DIAGNOSTIC WIRE .035 260cm J wire (571521) opened to sterile field. 11:43:18 Zero performed for pressure channel P1 11:58:18 --------ALL STOP TIME OUT------ 11:58:19 Final Timeout: patient, procedure, and site verified with staff and physician. All members of the team are in agreement. 11:58:21 Right groin site verified by team. 11:58:43 Physical assessment completed. ASA score P 2 - A patient with mild systemic disease as per Skyler Vázquez MD. 11:58:46 Sedation plan: IV Moderate Sedation Medication:Versed, Fentanyl 11:59:35 Versed 2 mg I.V. was administered by Yifan Antony RN; for sedation; 11:59:44 Fentanyl 50 mcg I.V. was administered by Yifan Antony RN; for sedation; 12:00:[address] VÁZQUEZ 12:00:33 Local anesthetic to right femoral artery with Lidocaine 2% by Skyler Vázquez MD.ADDITIONAL ACCESS 12:01:00 SHEATH 7FR Red Bud (TGT290) opened to sterile field. 12:01:01 GUIDE 7FR AR 2.0 SH catheter ([id number]) opened to sterile field. 12:01:02 INFLATOR Merit Carak (OD0934) opened to sterile field. 12:01:32 A 7 Fr Short sheath was inserted into the Right Femoral artery 12:01:46 Fentanyl 50 mcg I.V. was administered by Yifan Antony RN; for sedation; 12:02:21 7 Fr AR 2 SH guide catheter was inserted over the wire 12:03:23 CHOICE PT Extra Support J 300cm guide wire ([id number]) opened to sterile field. 12:03:39 CHOICE ES 300 wire advanced. 12:04:48 Heparin Bolus 4000 units I.V. was administered by Yifan Antony RN; for anticoagulation; 12:05:30 Wire advanced across lesion. 12:07:23 The EUPHORA 1.5 x 20 Balloon ([id number]) was advanced and then removed because of failure to cross lesion 12:07:30 Balloon removed over the wire. 12:07:31 Wire removed. 12:07:31 Guide catheter removed. 12:07:37 EXOSEAL 7Fr (EX700) opened to sterile field. 12:08:18 Sheath removed intact; hemostasis achieved with Exoseal to the Right Femoral artery. 12:08:52 Procedure ended.(Physican Out) 12:09:04 Fluoroscopy time 00.00 minutes. 12:09:08 Fluoroscopy dose: 470 mGy 12:09:08 Flurop Dose total: 470 12:09:12 Contrast amount:Isovue 300 107ml. 12:09:13 Sharps counted by scrub and verified by R.N. 12:09:20 Post right femoral artery:stable, soft, clean and dry 12:09:23 Post procedure: right dorsailis pedis pulse 2+ Normal; easily identifiable; not easily obliterated. 12:09:27 Post-procedure physical assessment completed. ASA score P 2 - A patient with mild systemic disease as per Skyler Vázquez MD. 12:09:30 Post procedure rhythm: unchanged. 12:09:32 Estimated blood loss: 10 ml 12:09:33 Post procedure instruction explained to patient.Patient verbalizes understanding. 12:09:34 Patient needs reinforcement of post procedure teaching. 12:10:41 Fentanyl 50 mcg I.V. was administered by Yifan Antony RN; for sedation; 12:12:10 Procedure type changed to Cath procedure, Diagnostic procedure, LHC, LHC w/Coronaries, Sedation Charges, Moderate Sedation up to 45 minutes 12:13:26 Procedure and supply charges have been captured, reviewed, submitted and are correct. 12:13:29 Procedure Complication : No complications 12:13:31 Vital chart was stopped 12:13:31 See physician's report for complete and final results. 12:13:34 Report given to Pre/Post Procedure Room. 12:13:36 Patient transfered to Pre/Post Procedure Room with Bed. 12:13:38 Procedure ended. 12:13:38 Full Disclosure recording stopped 12:13:41 End room use (Document Last) 12:19:33 PATIENT NEED FEMSTOP. 12:19:50 FEMSTOP Gold ([id number]) opened to sterile field. 12:20:06 Femstop placed over the right femoral artery at 150 mmHg. Hemostasis achieved. 12:20:11 Post Procedure Pulses reassessed and unchanged 12:20:17 Post procedure: right dorsailis pedis pulse 2+ Normal; easily identifiable; not easily obliterated. Intervention Summary Intervention Notes Time ActionType Lesion and Equipment Action# Pressure Duration Attributes Used 11:21:43 Discard EUPHORA Balloon 2.5 x 20 Balloon ([id number]) 12:07:23 Discard EUPHORA Balloon 1.5 x 20 Balloon ([id number]) Device Usage Item Name Manufacture Quantity Catalog Number Hospital Part Current Mini [facility] Lot# / Charge Number Stock Stock Serial# Code ACIST Acist 2 08235 039223 821230 176043 20 Syringe Mimix Broadband (30269) Systems Inc Medline Cath Cardinal 2 [id number] 474101 10784 974850 5 Pack Health ([id number]) Bag Decanter Microtek 2 622587 50964 413398 5 () Medical Inc. ACIST Acist 2 23102 249397 007373 417203 5 Manifold Medical (63971) Systems Inc ACIST Hand Acist 2 02627 374928 498827 639087 5 Control Medical (08269) Systems Inc SHEATH 6FR Terumo 1 [id number] 590383 896881 905845 40 Slender ([id number]) DIAGNOSTIC [facility] [place] 2 415962 841720 150098 173683 30 WIRE .035 260cm J wire (098273) Tegaderm 4 x 3M 1 1626W 862899 334836 304582 5 4 (1626W) DIAGNOSTIC Terumo 1 405023 072831 445437 105330 5 Emil 110cm 5Fr catheter (808734) INFLATOR Merit 2 SC6445 798601 285771 389639 15 Merit Medical BasixCompak (NG0572) COPILOT Lombardo 1 2312766 106438 792240 251767 5 Valve Vascular Control (7424234) BMW 190cm Lombardo 1 [id number] 650997 94771 877257 5 Kimberly 2 Vascular J wire (5543079U) GUIDE 6FR [place] 1 [id number] 863072 774996 058880 0 ART 3.5 Scientific catheter ([id number]) EUPHORA 2.5 Medtronic 1 [id number] 863458 389785 359229 5 [id number] x 20 Balloon ([id number]) TR BAND Terumo 1 [id number] 306183 588563 289136 40 Standard ([id number]) SHEATH 7FR Terumo 1 VMV295 641607 772915 708747 5 Red Bud (YMN431) GUIDE 7FR AR Medtronic 1 [id number] 302026 093717 944838 0 2.0 SH catheter ([id number]) CHOICE PT [place] 1 [id number] 588403 20180826 648845 5 Extra Scientific Support J 300cm guide wire ([id number]) EUPHORA 1.5 Medtronic 1 [id number] 663170 079273 456961 5 [id number] x 20 Balloon ([id number]) EXOSEAL 7Fr Cardinal 1 EX700 042057 276992 804286 5 (EX700) Health FEMSTOP Gold St [place] 1 [id number] 635541 095129 592603 5 ([id number]) Signature Audit [place] Stage Time Signature Unsigned Intra-Procedure 05/10/2017 Merry Ross 12:20:44 PM RT(R) Signatures Monitor : Merry Ross Signature : RT Date : Time : [place] [id number] [facility] [place] [address]
[2017-05-10 09:37] VITALS: BP 161/80; Ht 157.5 cm; Wt 50.9 kg
[2017-05-10 09:58] LABS: HEMATOCRIT 38.5 % (36.0-48.0); HEMOGLOBIN 12.9 g/dL (12-16); IMMATURE GRANULOCYTES 0.1 % (0-5); LYMPHOCYTES 33.9 % (15-50); MCH 30.9 pg (26.0-34.0); MCHC 33.5 g/dL (31.0-37.0); MCV 92.1 fL (80.0-100.0); MEAN PLATELET VOLUME 9.8 fL (7.4-10.4); MONOCYTES 9.7 % (2-11); NEUTROPHILS 52.3 % (40-80); RBC 4.18 10x6/uL (4.00-5.40); RDW 13.7 % (11.5-14.5); WBC 6.7 10x3/uL (4.8-10.8)
[2017-05-10 10:02] LABS: PLATELET COUNT 265 10x3/uL (130-400)
[2017-05-10 10:11] LABS: CALC OSMOLALITY 266 mosm/kg (275-300); CARBON DIOXIDE 26.5 mmol/L (21.0-32.0); CHLORIDE - SERUM 101 mmol/L (98-107); CREATININE - SERUM 0.7 mg/dL (0.6-1.3); GLUCOSE 80 mg/dL (74-106); SODIUM 135 mmol/L (136-145); UREA NITROGEN 8 mg/dL (7-18); eGFR NON AFRICAN AMERICAN 89 mL/min (90-120)
== END | disposition home or self-care (01) ==
LOC: D.CATH 08:51
PROVIDERS: Internal Medicine Cardiovascular Disease
DX: I25.119 Atherosclerotic heart disease of native coronary artery with unspecified angina pectoris (principal); R94.39 Abnormal result of other cardiovascular function study; Z01.812 Encounter for preprocedural laboratory examination

== ENCOUNTER 2017-05-11 21:50 | Inpatient (IN) | payer MEDICARE, OTHER ==
[~2017-05-11] VITALS: Ht 157.5 cm; Wt 59.1 kg
--- NOTE | ~2017-05-11 | HEMODYNAMI ---
PATIENT:FATMATA DESAI MEDICAL RECORD: [id number] : 52 [facility] [id number] ADMISSION DATE: 05/12/17 Generatedon:05/13/201712:32 Patient name: FATMATA DESAI Patient #: [id number] SSN: DO B: 1950 Date of study: 05/13/2017 Page: Of Hemodynamic Procedure Report Patient Data Patient Demographics Procedure consent was obtained First Name: FATMATA Gender: Female Last Name: GISELLE : 1950 [facility] Initial: HUMBERTO Age: 66 year(s) Patient #: [id number] Race: Unknown Additional ID: [id number] Contact details Address: [address] [place] [address] State: [place] City: [facility] Zip code: [address] Past Medical History Allergies Allergen Reaction Date Comments Reported Other allergy 05/10/2017 CIPRO, CLINDAMYCIN, KEFLEX, MORPHINE, STATINS Other allergy 05/13/2017 KEFLEX, CIPRO, STATINS, CLINDAMYCIN, MORPHINE, BEE STINGS Admission Admission Data Admission Date: 05/12/2017 Admission Time: 0:13 Room #: D.2131 Lab Results Lab Result Date: 05/13/2017 Lab Result Time: 0:00 Biochemistry Name Units Result Min Max BUN mg/dl 17 --(---*)-- 7 18 Creatinine mg/dl 0.7 --(*---)-- 0.6 1.3 CBC Name Units Result Min Max Hemoglobin g/dl 11.7 *-(----)-- 13.5 17.5 Procedure Procedure Types Cath Procedure Diagnostic Procedure Sedation Charges Moderate Sedation up to 45 minutes PCI Procedure Coronary Atherectomy Atherectomy w/Stent Coronary Initial Procedure Description Procedure Date Procedure Date: 05/13/2017 Procedure Start Time: 11:07 Procedure End Time: 12:32 Procedure Staff Name Function Skyler Vázquez MD Performing Physician Merry Ross RT Monitor Frank Clarke RN Nurse Rosita Obrien RT Scrgokul Barth RT Monitor Procedure Data Cath Procedure Fluoroscopy Diagnostic fluoroscopy Total fluoroscopy Time: time: 23.8 min 23.8 min Diagnostic fluoroscopy Total fluoroscopy dose: 934 dose: 934 mGy mGy Contrast Material Contrast Material Type Amount (ml) Isovue 300 203 Entry Location Entry Primary Successful Side Size Upsize Upsize Entry Closure Jackman ccessful Closure Location (Fr) 1 (Fr) 2 (Fr) Remarks Device Remarks Femoral Right 6 Fr Manual vein Short Compression Femoral Right 7 Fr Exoseal artery Short Estimated blood loss: 10 ml Procedure Complications Perforation Procedure Medications Medication Administration Route Dosage Oxygen NC 2 l/min Lidocaine 2% added to field 20 Heparin Flush Bag added to field 2 bags (1000units/500ml NS) 0.9% NaCl I.V. 100 ml/hr Versed I.V. 1 mg Dilaudid I.V. 1 mg Versed I.V. 1 mg Dilaudid I.V. 1 mg Heparin Bolus I.V. 4000 units Heparin Bolus I.V. 4000 units Versed I.V. 0.5 mg Dilaudid I.V. 0.5 mg Hemodynamics Rest HGB: 11.7 (g/dl) Heart Rate: 79 (bpm) Snapshots Pre Cath Intra NCS Post Cath Vital Signs Time Heart Resp SPO2 etCO2 NIBP (mmHg) Rhythm Pain Sedation Rate (ipm) (%) (mmHg) Status Level (bpm) 10:30:28 78 15 98 0 175/104(146) NSR 0 (11) 10(A) , No pain 10:35:09 74 16 95 0 181/102(135) NSR 0 (11) 10(A) , No pain 10:39:51 73 17 96 0 160/89(127) NSR 0 (11) 10(A) , No pain 10:44:28 70 15 95 0 171/98(140) NSR 0 (11) 10(A) , No pain 10:49:11 67 16 95 0 152/76(124) NSR 0 (11) 10(A) , No pain 10:53:47 68 15 98 32.5 154/88(129) NSR 0 (11) 10(A) , No pain 10:58:24 69 17 98 19.9 155/89(128) NSR 0 (11) 10(A) , No pain 11:03:02 64 17 95 8.1 136/79(127) NSR 0 (11) 10(A) , No pain 11:07:35 68 15 94 48 150/87(126) NSR 0 (11) 9(A) , No pain 11:12:11 75 16 93 46.5 155/88(129) NSR 0 (11) 9(A) , No pain 11:16:48 83 12 93 37.7 153/90(128) NSR 0 (11) 9(A) , No pain 11:21:24 87 22 94 51 157/91(128) NSR 0 (11) 9(A) , No pain 11:26:01 87 22 93 48.7 158/95(130) NSR 0 (11) 9(A) , No pain 11:30:37 86 22 94 45.8 135/85(109) NSR 0 (11) 9(A) , No pain 11:35:08 83 31 93 0 150/95(144) NSR 0 (11) 9(A) , No pain 11:40:25 74 25 93 0 183/98(144) NSR 0 (11) 9(A) , No pain 11:45:08 84 31 94 0 174/104(148) NSR 0 (11) 9(A) , No pain 11:49:49 82 26 94 0 187/113(143) NSR 0 (11) 9(A) , No pain 11:54:31 81 22 93 0 182/102(134) NSR 0 (11) 9(A) , No pain 11:59:12 78 26 94 0 179/101(146) NSR 0 (11) 9(A) , No pain 12:03:52 77 19 94 0 178/101(121) NSR 0 (11) 9(A) , No pain 12:08:33 82 15 95 0 183/103(153) NSR 0 (11) 9(A) , No pain 12:13:15 76 15 93 0 178/92(134) NSR 0 (11) 9(A) , No pain 12:17:56 77 26 95 0 183/102(133) NSR 0 (11) 9(A) , No pain 12:22:37 69 17 93 11 154/92(139) NSR 0 (11) 10(A) , No pain 12:27:11 70 18 94 19.2 157/93(128) NSR 0 (11) 10(A) , No pain 12:31:48 73 11 94 55.4 162/93(131) NSR 0 (11) 10(A) , No pain Medications Time Medication Route Dose Verified Delivered Reason Notes Effectiveness by by 10:54:33 Oxygen NC 2 Skyler Buffie used for l/min Gurpreet Clarke RN procedure 10:54:41 Lidocaine 2% added 20ml Skyler Buffie for local to vial Gurpreet Clarke RN anesthetic field 10:54:47 Heparin Flush added 2 Skyler Buffie used for Bag to bags Gurpreet Clarke RN procedure (1000units/500ml field NS) 10:54:56 0.9% NaCl I.V. 100 Skyler Buffie Per physician ml/hr Gurpreet Clarke RN 11:03:37 Versed I.V. 1 mg Skyler Buffie for sedation Gurpreet Clarke RN 11:03:47 Dilaudid I.V. 1 mg Skyler Buffie for sedation Gurpreet Clarke RN 11:09:26 Versed I.V. 1 mg Skyler Buffie for sedation Gurpreet Clarke RN 11:09:31 Dilaudid I.V. 1 mg Skyler Buffie for sedation Gurpreet Clarke RN 11:11:41 Heparin Bolus I.V. 4000 Skyler Buffie for verifi ed units Gurpreet Clarke RN anticoagulation with dr vázquez 11:32:36 Heparin Bolus I.V. 4000 Skyler Buffie for verifi ed units Gurpreet Clarke RN anticoagulation with dr vázquez 11:42:44 Versed I.V. 0.5 Skyler Buffie for sedation mg Gurpreet Clarke RN 11:42:52 Dilaudid I.V. 0.5 Skyler Buffie for sedation mg Gurpreet Clarke RN Procedure Log Time Note 10:15:11 Plan of Care:Hemodynamics will remain stable., Cardiac rhythm will remain stable., Comfort level will be maintained., Respiratory function will remain adequate., Patient/ family verbilizes understanding of procedure., Procedure tolerated without complication., Recovers from procedure without complications.. 10:15:12 Time tracking: Regular hours 10:15:15 Signed procedure consent form obtained from patient. 10:15:25 H&P Date Dictated: 05/12/2017 Within 30 days and on chart.. 10:16:16 Lab Result : BUN 17 mg/dl 10:16:16 Lab Result : Creatinine 0.7 mg/dl 10:16:16 Lab Result : Hemoglobin 11.7 g/dl 10:16:53 Rosita Obrien RT(R) sent for patient. Start room use. 10:29:34 Patient received from Med II to CCL 1 Alert and oriented. Tansferred to table in Supine position. 10:29:35 Warm blankets applied, and manas hugger turned on for patient comfort. 10:29:35 Correct patient and procedure confirmed by team. 10:29:35 ECG and BP/O2 sat monitors applied to patient. 10:29:39 Vital chart was started 10:35:27 Baseline sample Acquired. 10:35:33 Rhythm: sinus rhythm 10:35:34 Full Disclosure recording started 10:35:35 Pre-procedure instructions explained to patient. 10:35:36 Pre-op teaching completed and patient verbalized understanding. 10:35:37 Family unavailable. 10:35:39 Patient NPO since Midnight. 10:36:04 Patient allergic to Other allergyKEFLEX, CIPRO, STATINS, CLINDAMYCIN, MORPHINE, BEE STINGS 10:36:06 Is the patient allergic to Iodine/contrast media? No. 10:36:10 Is patient on blood thinner?Yes 10:36:15 ACC The patient was administered the following blood thiners within the last 24 hours: ACCPlavix 10:36:23 Patient diabetic? No. 10:36:26 Patient not . Patient is over age 55. 10:36:40 Previous problem with sedation/anesthesia? No ? 10:36:41 Snore? Yes 10:36:42 Sleep apnea? No 10:36:43 Deviated septum? N/A 10:36:44 Opens mouth fully? Yes 10:36:45 Sticks out tongue? Yes 10:37:38 Airway obstruction? Yes COPD, EMPHYZMA 10:37:41 Dentures? Yes OUT 10:37:45 Pre procedure: right dorsailis pedis pulse 2+ Normal; easily identifiable; not easily obliterated 10:42:00 Patient pain scale 0/10 ?. 10:42:07 IV patent on arrival in right hand with 0.9% NaCl at [facility]. 10:42:11 Lab results completed and on chart. 10:42:15 Right groin area was prepped with chlora-prep and draped in sterile fashion 10:42:17 Alarms reviewed by R. N. 10:42:17 Sharps counted by scrub and verified by R.N. 10:43:40 Use device set Femoral Dx 10:43:41 ACIST Syringe (43717) opened to sterile field. 10:43:41 Bag Decanter (2002S) opened to sterile field. 10:43:42 Medline Cath Pack ([id number]) opened to sterile field. 10:43:50 DIAGNOSTIC WIRE .035 260cm J wire (745873) opened to sterile field. 10:43:51 ACIST Hand Control (87361) opened to sterile field. 10:43:51 ACIST Manifold (79530) opened to sterile field. 10:43:57 Tegaderm 4 x 4 (1626W) opened to sterile field. 10:44:00 PERCUTANEOUS ENTRY 19GA needle opened to sterile field. 10:44:11 SHEATH 6FR Wykoff (LTJ676) opened to sterile field. 10:44:12 SHEATH 7FR Wykoff (RCA258) opened to sterile field. 10:44:34 INFLATOR Merit BasixCompak (CY6548) opened to sterile field. 10:44:59 CHOICE PT Extra Support 182cm wire ([id number]) opened to sterile field. 10:52:23 Zero performed for pressure channel P1 10:53:59 GUIDE 7FR AR 2.0 SH catheter ([id number]) opened to sterile field. 10:54:33 Oxygen 2 l/min NC was administered by Frank Clarke RN; used for procedure; 10:54:41 Lidocaine 2% 20ml vial added to field was administered by Frank Clarke RN; for local anesthetic; 10:54:47 Heparin Flush Bag (1000units/500ml NS) 2 bags added to field was administered by Frank Clarke RN; used for procedure; 10:54:56 0.9% NaCl 100 ml/hr I.V. was administered by Frank Clarke RN; Per physician; 11:02:50 --------ALL STOP TIME OUT------ 11:02:51 Final Timeout: patient, procedure, and site verified with staff and physician. All members of the team are in agreement. 11:02:54 Right groin site verified by team. 11:02:56 Physical assessment completed. ASA score P 2 - A patient with mild systemic disease as per Skyler Vázquez MD. 11:03:06 Sedation plan: IV Moderate Sedation Medication:Versed, Dilaudid 11:03:37 Versed 1 mg I.V. was administered by Frank Clarke RN; for sedation; 11:03:47 Dilaudid 1 mg I.V. was administered by Frank Clarke RN; for sedation; 11:07:00 Procedure started. 11:07:20 Local anesthetic to right femoral vein with Lidocaine 2% by Skyler Vázquez MD.INITIAL ACCESS ONLY 11:07:57 A 6 Fr Short sheath was inserted into the Right Femoral vein 11:09:26 Versed 1 mg I.V. was administered by Frank Clarke RN; for sedation; 11:09:31 Dilaudid 1 mg I.V. was administered by Frank Clarke RN; for sedation; 11:10:36 Temporary pacer inserted 11:10:52 Local anesthetic to right femoral artery with Lidocaine 2% by Skyler Vázquez MD.ADDITIONAL ACCESS 11:11:02 A 7 Fr Short sheath was inserted into the Right Femoral artery 11:11:16 7 Fr AR 2 SH guide catheter was inserted over the wire 11:11:41 Heparin Bolus 4000 units I.V. was administered by Frank Clarke RN; for anticoagulation; verified with dr vázquez 11:11:46 Temporary pacer turned on with the following settings: Rate 40, MA 5, Mode: Demand. 11:12:31 VIPER WIRE wire advanced. 11:13:28 5Fr J Tip Temporary Pacing Catheter ([id number]) opened to sterile field. 11:13:46 Wire advanced across lesion. 11:15:01 Quick Combo opened to sterile field. 11:15:06 Quick combo pads placed on patients chest and back. 11:15:31 DIAMONDBACK VIPER .014 335 CM wire ([id number]) opened to sterile field. 11:15:32 DIAMONDBACK Viperslide Lubricant (VPRSLD2) opened to sterile field. 11:16:18 The DIAMONDBACK Coronary atherectomy catheter (VNXJ646) was advanced and then removed because 11:17:32 THE DIAMONDBACK CORONARY ARTHERECTOMY CATHETER WAS ADVANCED 11:20:14 DIAMONDBACK ARTHERECTOMY PERFORMED ON PROX/MID RCA 11:24:36 Diamondback catheter removed. 11:24:50 VIPER WIRED REMOVED 11:25:26 CHOICE PT Extra Support J 300cm guide wire ([id number]) opened to sterile field. 11:27:22 DIAMONDBACK VIPER .014 335 CM wire (SOHFANC15) opened to sterile field. 11:29:11 THE DIAMONDBACK CORONARY ARTHERECTOMY CATHETER WAS ADVANCED 11:30:09 DIAMONDBACK ARTHERECTOMY PERFORMED ON PROX/MID RCA 11:32:36 Heparin Bolus 4000 units I.V. was administered by Frank Clarke RN; for anticoagulation; verified with dr vázquez 11:32:42 Diamondback catheter removed. 11:35:17 BALLOON ADVANCED TO PUT CHOICE PT WIRE DOWN 11:35:24 Inflation number: 1 A EMERGE OTW 1.5 x 20 balloon ([id number]) was prepped and advanced across the Mid RCA, then inflated to 21 LINH for 0:10 (min:sec). 11:35:39 VIPER WIRE REMOVED 11:35:47 CHOICE PT WIRE wire advanced. 11:35:48 Wire advanced across lesion. 11:36:02 Inflation number: 2 The EMERGE OTW 1.5 x 20 balloon ([id number]) was reinflated across the Mid RCA, to 21 LINH for 0:00 (min:sec). 11:36:09 Balloon removed over the wire. 11:37:36 Inflation number: 3 A EUPHORA 2.0 x 20 Balloon ([id number]) was prepped and advanced across the Mid RCA, then inflated to 21 LINH for 0:10 (min:sec). 11:38:21 Inflation number: 4 The EUPHORA 2.0 x 20 Balloon ([id number]) was reinflated across the Mid RCA, to 21 LINH for 0:10 (min:sec). 11:38:32 Balloon removed over the wire. 11:39:09 CHOICE PT 182 wire advanced. 11:39:39 Wire advanced across lesion. 11:39:50 LONG CHOICE PT REMOVED 11:41:09 The TERI RX 3.0 x 38 stent ([id number]) was advanced then removed because of failure to cross lesion 11:41:21 Stent catheter was removed intact over wire. 11:42:44 Versed 0.5 mg I.V. was administered by Frank Clarke RN; for sedation; 11:42:46 Inflation number: 5 A EUPHORA 3.0 x 20 Balloon ([id number]) was prepped and advanced across the Mid RCA, then inflated to 15 LINH for 0:10 (min:sec). 11:42:52 Dilaudid 0.5 mg I.V. was administered by Frank Clarke RN; for sedation; 11:43:05 Inflation number: 6 The EUPHORA 3.0 x 20 Balloon ([id number]) was reinflated across the Mid RCA, to 17 LINH for 0:00 (min:sec). 11:43:13 Inflation number: 7 The EUPHORA 3.0 x 20 Balloon ([id number]) was reinflated across the Mid RCA, to 17 LINH for 0:00 (min:sec). 11:43:19 Balloon removed over the wire. 11:44:33 Inflation Number: 8 A TERI RX 3.0 x 38 stent ([id number]) was prepped and advanced across the Mid RCA. The stent was deployed at 17 LINH for 0:10 (min:sec). 11:44:57 Stent catheter was removed intact over wire. 11:46:26 Inflation Number: 1 A TERI RX 3.5 x 22 stent ([id number]) was prepped and advanced across the Prox RCA. The stent was deployed at 15 LINH for 0:10 (min:sec). 11:46:38 Inflation number: 2 The stent balloon was then re-inflated across the Prox RCA to 13 LINH for 0:10 (min:sec). 11:47:28 PERFERATION OF THE RCA. 11:49:42 Inflation number: 3 The stent balloon was then re-inflated across the Prox RCA to 0 LINH for 1:59 (min:sec). 11:50:41 Inflation number: 4 The stent balloon was then re-inflated across the Prox RCA to 0 LINH for 0:47 (min:sec). 11:50:45 Stent catheter was removed intact over wire. 11:51:56 Inflation Number: 5 A GRAFTMASTER (GONZALO STENT) 4.0 X 19 stent ([id number]) was prepped and advanced across the Prox RCA. The stent was deployed at 13 LINH for 0:10 (min:sec). 11:52:19 Inflation number: 6 The stent balloon was then re-inflated across the Prox RCA to 15 LINH for 0:00 (min:sec). 12:00:38 Inflation number: 9 The stent balloon was then re-inflated across the Mid RCA to 17 LINH for 8:08 (min:sec). 12:01:46 GABRIELA ARRIVED WITH ECHO 12:05:08 Merry Ross RT(R) was relieved by Orestes Barth RT(R) as monitoring person 12:06:14 Inflation number: 10 The stent balloon was then re-inflated across the Mid RCA to 17 LINH for 5:16 (min:sec). 12:12:12 Inflation number: 11 The stent balloon was then re-inflated across the Mid RCA to 17 LINH for 5:19 (min:sec). 12:16:40 Orestes Barth RT(R) was relieved by Merry Ross RT(R) as monitoring person 12:17:51 Guide catheter removed. 12:17:51 Wire removed. 12:17:52 Stent catheter was removed intact over wire. 12:18:10 Temporary pacer turn off 12:18:40 EXOSEAL 7Fr (EX700) opened to sterile field. 12:18:58 Sheath removed intact; hemostasis achieved with Exoseal to the Right Femoral artery. 12:19:26 Temporary pacer removed 12:19:37 Sheath removed intact; hemostasis achieved with Manual Compression to the Right Femoral vein. 12:19:42 Procedure ended.(Physican Out) 12:20:17 Fluoroscopy time 23.80 minutes. 12:20:21 Flurop Dose total: 934 12:20:21 Fluoroscopy dose: 934 mGy 12:20:24 Contrast amount:Isovue 300 203ml. 12:20:25 Sharps counted by scrub and verified by R.N. 12:20:40 Post procedure: right dorsailis pedis pulse 2+ Normal; easily identifiable; not easily obliterated. 12:20:43 Post-procedure physical assessment completed. ASA score P 2 - A patient with mild systemic disease as per Skyler Vázquez MD. 12:22:16 Post procedure rhythm: unchanged. 12:22:18 Estimated blood loss: 10 ml 12:22:20 Post procedure instruction explained to patient.Patient verbalizes understanding. 12:22:20 Patient needs reinforcement of post procedure teaching. 12:22:54 Procedure type changed to Cath procedure, Diagnostic procedure, Sedation Charges, Moderate Sedation up to 45 minutes, PCI procedure, Coronary Atherectomy, Atherectomy w/Stent Coronary Initial 12:25:54 FEMSTOP Gold (G00022) opened to sterile field. 12:30:43 Femstop placed over the right femoral artery at 200 mmHg. Hemostasis achieved. 12:32:06 Procedure and supply charges have been captured, reviewed, submitted and are correct. 12:32:13 Procedure Complication : Perforation 12:32:17 Vital chart was stopped 12:32:17 See physician's report for complete and final results. 12:32:20 Report given to CVICU. 12:32:23 Patient transfered to CVICU with Bed. 12:32:25 Procedure ended. 12:32:25 Full Disclosure recording stopped 12:32:31 End room use (Document Last) Intervention Summary Intervention Notes Time ActionType Lesion and Equipment Used Action# Pressure Duration Attributes 11:16:18 Discard DIAMONDBACK Balloon Coronary atherectomy catheter (ROCC858) 11:35:24 Inflate Mid RCA EMERGE OTW 1.5 1 21 00:10 balloon x 20 balloon ([id number]) 11:36:02 Reinflate Mid RCA EMERGE OTW 1.5 2 21 00:00 balloon x 20 balloon ([id number]) 11:37:36 Inflate Mid RCA EUPHORA 2.0 x 3 21 00:10 balloon 20 Balloon ([id number]) 11:38:21 Reinflate Mid RCA EUPHORA 2.0 x 4 21 00:10 balloon 20 Balloon ([id number]) 11:41:09 Discard TERI RX 3.0 x Stent 38 stent ([id number]) 11:42:46 Inflate Mid RCA EUPHORA 3.0 x 5 15 00:10 balloon 20 Balloon ([id number]) 11:43:05 Reinflate Mid RCA EUPHORA 3.0 x 6 17 00:00 balloon 20 Balloon ([id number]) 11:43:13 Reinflate Mid RCA EUPHORA 3.0 x 7 17 00:00 balloon 20 Balloon ([id number]) 11:44:33 Place stent Mid RCA TERI RX 3.0 x 8 17 00:10 38 stent ([id number]) 11:46:26 Place stent Prox RCA TERI RX 3.5 x 1 15 00:10 22 stent ([id number]) 11:46:38 Reinflate Prox RCA TERI RX 3.5 x 2 13 00:10 stent 22 stent balloon ([id number]) 11:49:42 Reinflate Prox RCA TERI RX 3.5 x 3 0 01:59 stent 22 stent balloon ([id number]) 11:50:41 Reinflate Prox RCA TERI RX 3.5 x 4 0 00:47 stent 22 stent balloon ([id number]) 11:51:56 Place stent Prox RCA GRAFTMASTER 5 13 00:10 (GONZALO STENT) 4.0 X 19 stent ([id number]) 11:52:19 Reinflate Prox RCA GRAFTMASTER 6 15 00:00 stent (GONZALO STENT) 4.0 balloon X 19 stent ([id number]) 12:00:38 Reinflate Mid RCA GRAFTMASTER 9 17 08:08 stent (GONZALO STENT) 4.0 balloon X 19 stent ([id number]) 12:06:14 Reinflate Mid RCA GRAFTMASTER 10 17 05:16 stent (GONZALO STENT) 4.0 balloon X 19 stent ([id number]) 12:12:12 Reinflate Mid RCA GRAFTMASTER 11 17 05:19 stent (GONZALO STENT) 4.0 balloon X 19 stent ([id number]) Device Usage Item Name Manufacture Quantity Catalog Number [facility] Minimal Lot# / Charge Number Stock Stock Serial# Code ACIST Syringe Acist Medical 1 33225 575959 259565 061513 20 (99445) Ifbyphone Inc Bag Decanter Microtek 1 422551 16000 929134 5 () Medical Inc. Medline Cath Cardinal 1 [id number] 938201 45164 019222 5 [facility] ([id number]) DIAGNOSTIC [facility] [place] 1 694050 346356 223728 442220 30 WIRE .035 260cm J wire (546821) ACIST Hand Acist Medical 1 92365 828104 790766 051648 5 Lasso Logic Systems Inc (74855) ACIST Manifold Acist Medical 1 62915 099706 467720 945436 5 (04652) Systems Inc Tegaderm 4 x 4 3M 1 1626W 095759 731198 404545 5 (1626W) PERCUTANEOUS Cook Medical 1 N82101 747701 392845 5 ENTRY 19GA needle SHEATH 6FR Terumo 1 SBQ071 789562 392897 661757 40 Wykoff (LVX121) SHEATH 7FR Terumo 1 DTW611 434841 364062 420202 5 Wykoff (STS872) INFLATOR [facility] 1 UQ7318 470863 541120 176825 15 BasixCompak (HK8317) CHOICE PT [place] 1 [id number] 726511 399159 050474 5 Extra Support Scientific 182cm wire (1597669V4) GUIDE 7FR AR Medtronic 1 [id number] 341753 119731 953736 0 2.0 SH catheter ([id number]) 5Fr J Tip Ahmadi 1 [id number] 442436 66920 705726 2 Temporary Lifesciences Pacing Catheter ([id number]) Quick Combo Edge Systems 1 56637-467202 045299 142645 009877 5 DIAMONDBACK Cardiovascular 2 VPR-GW-FT14 158293 057465 5 VIPER .014 335 systems CM wire (HYPNKTH26) DIAMONDBACK Cardiovascular 1 VPR-SLD2 857017 294116 5 Viperslide systems Lubricant (VPRSLD2) DIAMONDBACK Cardiovascular 1 DBEC-125 298509 485083 757771 5 Coronary systems atherectomy catheter (QJOK578) CHOICE PT [place] 1 [id number] 857919 259336 522139 5 Extra Support Scientific J 300cm guide wire (6883553H5) EMERGE OTW 1.5 [place] 1 [id number] 828319 890915 047020 5 [id number] x 20 balloon Scientific ([id number]) EUPHORA 2.0 x Medtronic 1 [id number] 583318 877520 168032 5 [id number] 20 Balloon ([id number]) TERI RX 3.0 x Medtronic 1 [id number] 880243 4002123 123606 5 [id number] 38 stent ([id number]) EUPHORA 3.0 x Medtronic 1 [id number] 930621 223049 193677 5 [id number] 20 Balloon ([id number]) TERI RX 3.5 x Medtronic 1 [id number] 471061 3795028 077780 5 [id number] 22 stent ([id number]) GRAFTMASTER Lombardo 1 [id number] 726326 158533 029691 0 [id number] (GONZALO STENT) 4.0 Vascular X 19 stent ([id number]) EXOSEAL 7Fr Cardinal 1 EX700 316441 906333 798795 5 (EX700) Health FEMSTOP Gold [facility] [place] 1 K49978 837101 548265 493876 5 ([id number]) Signature Audit [place] Stage Time Signature Unsigned Intra-Procedure 05/13/2017 Merry Ross 12:32:56 PM RT(R) Signatures Monitor : Merry Ross RT Signature : Date : Time : Monitor : Orestes Barth RT Signature : Date : Time : [place] [id number] [place] [address]
--- NOTE | ~2017-05-11 | EC ---
PATIENT:FATMATA DESAI DATE OF SERVICE: 05/13/17 SEX: F MEDICAL RECORD: [id number] DATE OF : 52 LOCATION:[place] [address] AGE OF PATIENT: 66 ADMISSION DATE: 05/13/17 REFERRING PHYSICIAN: INTERPRETING PHYSICIAN: ROBBIE VÁZQUEZ MD ECHOCARDIOGRAM REPORT ECHO CHARGES 5 ECHO LIMITED DATE: CLINICAL DIAGNOSIS: EVALUATE PERICARDIAL EFFUSION S/P CATH ECHOCARDIOGRAPHIC MEASUREMENTS (adult normal given) AC root (d.<3.7cm) 0 cm LV Septum d (<1.2 cm> 0 cm Valve Excursion 0 cm LV Septum (systole) 0 cm Left Atria (s.<4.0cm> 0 cm LVPW d(<1.2cm) 0 cm RV (d.<2.3cm) 0 cm LVPW (sytole) 0 cm LV diastole(<5.6CM) 0 cm MV E-F(>70mm/sec) 0 cm LV systole 0 cm LVOT Diameter 0 cm MV exc.(>10mm) 0 cm Est.ejection fraction (50-75%) 0 % DOPPLER: LVIT 0 cm/sec A 0 cm/sec E 0 cm/sec LA 0 cm/sec RVSP 0 mmHg LVOT 0 cm/sec AOP1/2T 0 m/s Asc. Ao 0 cm/sec RVOT 0 cm/sec RA 0 cm/sec PA 0 cm/sec AV Gradient Peak 0 mmHg AV Mean 0 mmHg AV Area 0 cm MV Gradient Peak 0 mmHg MV Mean 0 mmHg MV Area 0 cm COMMENTS: LIMITED STUDY (2-D ONLY) Design Manager: Jane ENCISO Hi Teacher: 1 Dr. Vázquez TAPE# PACS Pericardial Effusion Y DATE OF SERVICE: 05/14/2017 Limited echo for evaluation of pericardial effusion. FINDINGS: Minimal pericardial effusion is present, no change from yesterday's echocardiogram. TRANSINT:[id number] Voice Confirmation ID: [id number] DOCUMENT ID: [id number] ECHOCARDIOGRAM REPORT [id number] FATMATA DESAI JEFFREY MD at 1140 CC: [id number] DICTATION DATE: 05/14/17 1152 TRAUMA SURGEON: 05/14/17 1207 DIS IN 05/14/17 [facility] [address] [facility] [place] [address]
--- NOTE | ~2017-05-11 | DS ---
PATIENT:FATMATA DESAI :52 MEDICAL RECORD: [id number] DISCHARGE SUMMARY ADMISSION DATE: 05/13/17 DISCHARGE DATE: 05/14/17 DIAGNOSES: 1. Angina. 2. Coronary artery disease. 3. PTCA stent RCA this admission. 4. Hypertension. 5. Hyperlipidemia. HOSPITAL COURSE: Mrs. Desai presents with unstable anginal symptomatology, found to have critical disease of the RCA, underwent Diamondback atherectomy and PTCA stent of the RCA. It was complicated by a minor perforation. This was covered with a GraftMaster stent, perforation sealed. Serial echos were done later that afternoon as well as the next morning. There was no change, minimal pericardial effusion, and no hemodynamic compromise from the pericardial effusion. She was discharged home with the addition of Brilinta and aspirin to her medical regimen. Will follow up with [facility] in 2-3 weeks. TRANSINT:[id number] Voice Confirmation ID: [id number] DOCUMENT ID: [id number] ROBBIE MATOS MD at 1140 CC: [id number] DICTATION DATE: 05/14/17 1153 COMPANY DOCTOR: 05/14/17 1314 DIS IN 05/14/17 [facility] [address] [place] [address]
--- NOTE | ~2017-05-11 | HP ---
PATIENT: FATMATA DESAI MEDICAL RECORD: [id number] ACCOUNT: [id number] LOCATION:[address] : 52 ADMISSION DATE: 05/12/17 HISTORY AND PHYSICAL EXAMINATION DIAGNOSES: 1. Angina. 2. Coronary disease. 3. Hypertension. 4. Hyperlipidemia. 5. Arthritis. HISTORY: Mrs. Desai presented last week with chest pain, was found to have single-vessel disease of the RCA. It was very calcified. It could not be treated conventionally. She was planned for atherectomy on Saturday. REVIEW OF SYSTEMS: The patient reports easy bruising but reports no swollen glands. The patient reports no fever, no night sweats, no significant weight gain, no significant weight loss. No significant exercise tolerance. The patient reports no dry eyes, no irritation, no vision change. Patient reports no difficulty hearing and no ear pain. Patient reports no frequent nose bleeds or nose and sinus problems. Patient reports on arm pain on exertion. No shortness of breath while lying down. No history of heart murmur. Patient reports no cough, no wheezing or coughing up blood. Patient reports no abdominal pain, no vomiting. Normal appetite. No diarrhea and not vomiting blood. No nausea and no constipation. Patient reports no incontinence. No difficulty urinating. No hematuria. No increased frequency. Patient reports no muscle aches. No weakness, no arthralgias, no back pain. No swelling of the extremities. Patient reports no abnormal mole, no jaundice, no rashes. Reports no loss of consciousness. No weakness and no numbness. No seizures, dizziness, or headaches. The patient reports no depression, no sleep disturbance, feeling safe in a relationship and no alcohol abuse. Patient reports on fatigue. Reports no runny nose or sinus pressure. No itching, no hives, and no frequent sneezing. PHYSICAL EXAMINATION: GENERAL APPEARANCE: Well-nourished, well-developed, appears stated age. Level of distress, comfortable. PSYCHIATRIC: Mental status, alert, normal affect. Orientation, oriented to time, place and person. EYES: Lids and conjunctiva, noninjected. No discharge, no pallor. ENT: Lips, teeth, gums, normal dentition. Oropharynx, no cyanosis, no pallor. NECK: Carotid arteries, bilateral normal upstroke, no bruits, no thrills. JUGULAR VEINS: No jugular venous pressure or distention. CERVICAL LYMPH NODES: Nontender, nonenlarged. THYROID: Not enlarged. Nontender. No nodules. LUNGS: Respiratory effort, unlabored. CHEST: Normal curvature. No thoracic deformity. No chest wall tenderness. Percussion, resonant. Auscultation, clear. No wheezes, no rales, no rhonchi. CARDIOVASCULAR: Precordial exam, nondisplaced. No heaves or pericardial thrills. Rate and rhythm, regular. Heart sounds, normal S1, normal S2. No S3, no gallop, no rub. Systolic murmur, not heard. Diastolic murmur, not heard. EXTREMITIES: No cyanosis, no edema. Peripheral pulses, full and equal in all extremities, except as noted. No bruits appreciated. ABDOMEN: Soft, nondistended. Normal aorta. No bruit. Nontender. No masses. HISTORY AND PHYSICAL [id number] FATMATA DESAI Liver, nontender, no hepatomegaly. Spleen, nontender, no splenomegaly. MUSCULOSKELETAL: No joint tenderness. No joint swelling. No erythema. NEUROLOGICAL: Normal gait, normal strength, normal tone. SKIN: Warm and dry. OVERALL IMPRESSION: Continued angina. We will proceed with atherectomy of the RCA on Saturday. TRANSINT:[id number] Voice Confirmation ID: [id number] DOCUMENT ID: [id number] ROBBIE MATOS MD at 1202 CC: [id number] DICTATION DATE: 05/12/17 1209 VOCATIONAL HORTICULTURE INSTRUCTOR: 05/12/17 1440 [place] [address]
--- NOTE | ~2017-05-11 | EC ---
PATIENT:FATMATA DESAI DATE OF SERVICE: 05/12/17 SEX: F MEDICAL RECORD: [id number] DATE OF : 52 LOCATION:[place] [address] AGE OF PATIENT: 66 ADMISSION DATE: 05/13/17 REFERRING PHYSICIAN: INTERPRETING PHYSICIAN: ROBBIE VÁZQUEZ MD ECHOCARDIOGRAM REPORT ECHO CHARGES 5 ECHO LIMITED DATE: CLINICAL DIAGNOSIS: POSSIBLE PERF DURING CATH - R/O PERICARDIAL EFFUSION ECHOCARDIOGRAPHIC MEASUREMENTS (adult normal given) AC root (d.<3.7cm) 0 cm LV Septum d (<1.2 cm> 0 cm Valve Excursion 0 cm LV Septum (systole) 0 cm Left Atria (s.<4.0cm> 0 cm LVPW d(<1.2cm) 0 cm RV (d.<2.3cm) 0 cm LVPW (sytole) 0 cm LV diastole(<5.6CM) 0 cm MV E-F(>70mm/sec) 0 cm LV systole 0 cm LVOT Diameter 0 cm MV exc.(>10mm) 0 cm Est.ejection fraction (50-75%) 0 % DOPPLER: LVIT 0 cm/sec A 0 cm/sec E 0 cm/sec LA 0 cm/sec RVSP 0 mmHg LVOT 0 cm/sec AOP1/2T 0 m/s Asc. Ao 0 cm/sec RVOT 0 cm/sec RA 0 cm/sec PA 0 cm/sec AV Gradient Peak 0 mmHg AV Mean 0 mmHg AV Area 0 cm MV Gradient Peak 0 mmHg MV Mean 0 mmHg MV Area 0 cm COMMENTS: LIMITED STUDY (2-D ONLY) Administrative Operations Coordinator: Jane BARKSDALEOE Lens Matcher: 1 Dr. Vázquez TAPE# PACS Pericardial Effusion Y DATE OF SERVICE: 05/13/2017 Echocardiogram INDICATION: Possible perforation during coronary intervention. FINDINGS: 1. Left ventricular chamber size is within normal limits. Left ventricular systolic function is normal. Overall ejection fraction estimated 60%. 2. No significant pericardial effusion is present. ECHOCARDIOGRAM REPORT [id number] FATMATA DESAI TRANSINT:[id number] Voice Confirmation ID: [id number] DOCUMENT ID: [id number] ROBBIE VÁZQUEZ MD at 1140 CC: [id number] DICTATION DATE: 05/13/17 1256 SHIPPING AND RECEIVING CLERK: 05/13/17 1308 DIS IN 05/14/17 [facility] [address] [place] [address]
[~2017-05-11 21:50] MED LIST changes: -BRILINTA90 MG PO
[2017-05-11 22:15] LABS: BASOPHILS 0.4 % (0-2); EOSINOPHILS 2.5 % (0-7); HEMATOCRIT 35.1 % (36.0-48.0); HEMOGLOBIN 11.7 g/dL (12-16); IMMATURE GRANULOCYTES 0.2 % (0-5); LYMPHOCYTES 21.2 % (15-50); MCH 30.6 pg (26.0-34.0); MCHC 33.3 g/dL (31.0-37.0); MCV 91.9 fL (80.0-100.0); MEAN PLATELET VOLUME 9.6 fL (7.4-10.4); MONOCYTES 8.8 % (2-11); NEUTROPHILS 66.9 % (40-80); PLATELET COUNT 235 10x3/uL (130-400); RBC 3.82 10x6/uL (4.00-5.40); RDW 13.6 % (11.5-14.5)
[2017-05-11 22:31] LABS: ALBUMIN 3.5 g/dL (3.4-5.0); ALKALINE PHOSPHATASE 53 U/L (46-116); ALT (SGPT) 51 U/L (10-68); CALC OSMOLALITY 279 mosm/kg (275-300); CALCIUM 8.7 mg/dL (8.5-10.1); CARBON DIOXIDE 25.8 mmol/L (21.0-32.0); CHLORIDE - SERUM 101 mmol/L (98-107); CREATININE - SERUM 0.7 mg/dL (0.6-1.3); GLUCOSE 101 mg/dL (74-106); POTASSIUM - SERUM 3.7 mmol/L (3.5-5.1); PROTEIN - SERUM 6.4 g/dL (6.4-8.2); SODIUM 139 mmol/L (136-145); eGFR NON AFRICAN AMERICAN 89 mL/min (90-120)
[2017-05-11 22:32] LABS: UREA NITROGEN 17 mg/dL (7-18)
[2017-05-11 22:40] LABS: CHOL - HDL RATIO 4.4 ratio (2.3-4.1); CHOLESTEROL, TOTAL 259 mg/dL (0-200); CKMB 1.6 U/L (0.0-3.6); CREATINE KINASE 94 UL (21-215); HDL CHOLESTEROL 59 mg/dL (32-96); LDL CHOLESTEROL 173 mg/dL (0-100); LDL-HDL RATIO 2.9 ratio (1.5-3.5); TRIGLYCERIDE 137 mg/dL (30-200); TROPONIN-I 0.059 ng/mL (0.000-0.060)
[2017-05-12 09:43] LABS: CKMB 1.4 U/L (0.0-3.6); CREATINE KINASE 52 UL (21-215)
[2017-05-12 09:44] LABS: TROPONIN-I 0.066 ng/mL (0.000-0.060)
[2017-05-12 17:55] VITALS: BMI 20.5
[2017-05-12 18:09] VITALS: BP 131/70
[2017-05-12 21:53] VITALS: BP 132/73
[2017-05-13] VITALS (15 sets, daily range): BP systolic 90–165; BP diastolic 53–89; Ht 157.5 cm; Wt 59.1 kg
[2017-05-13 15:52] LABS: PLT FUNCT.(P2Y12) PLAVIX 224 PRU (194-418)
[2017-05-14] VITALS (9 sets, daily range): BP systolic 76–126; BP diastolic 47–78
[2017-05-14] MEDS ORDERED: BRILINTA90 MG PO (11:41)
== END 2017-05-14 13:23 | disposition home or self-care (01) | DRG 247 ==
LOC: D.ER 21:50 → OBSVTIME 05-12 00:13 → D.EDHOLD 05-12 00:13 → D.M2 05-12 00:13 → D.EDHOLD 05-12 00:13 → D.M2 05-12 16:14 → D.CVICU 05-13 12:49
PROVIDERS: Emergency Medicine; Thoracic Surgery (Cardiothoracic Vascular Surgery)
PROC: 027035Z Dilation of Coronary Artery, One Artery with Two Drug-eluting Intraluminal Devices, Percutaneous Approach (ICD-10-PCS; principal; 2017-05-13)
PROC: 02C03ZZ Extirpation of Matter from Coronary Artery, One Artery, Percutaneous Approach (ICD-10-PCS; 2017-05-13)
PROC: 4A023N7 Measurement of Cardiac Sampling and Pressure, Left Heart, Percutaneous Approach (ICD-10-PCS; 2017-05-13)
PROC: B2111ZZ Fluoroscopy of Multiple Coronary Arteries using Low Osmolar Contrast (ICD-10-PCS; 2017-05-13)
PROC: B2151ZZ Fluoroscopy of Left Heart using Low Osmolar Contrast (ICD-10-PCS; 2017-05-13)
DX: I25.119 Atherosclerotic heart disease of native coronary artery with unspecified angina pectoris (principal); I97.51 Accidental puncture and laceration of a circulatory system organ or structure during a circulatory system procedure; I10 Essential (primary) hypertension; E78.5 Hyperlipidemia, unspecified; I25.41 Coronary artery aneurysm; Y83.8 Other surgical procedures as the cause of abnormal reaction of the patient, or of later complication, without mention of misadventure at the time of the procedure; Z72.0 Tobacco use

== ENCOUNTER 2017-05-15 07:06 | Emergency (ER) | payer MEDICARE, OTHER ==
[2017-05-13 17:05] VITALS: BMI 20.8
[~2017-05-15 07:06] MED LIST changes: +BRILINTA90 MG PO
[2017-05-15 08:01] LABS: APPEARANCE CLEAR (CLEAR); BILIRUBIN NEGATIVE (NEGATIVE); COLOR DK YELLOW (YELLOW); GLUCOSE NEGATIVE (NEGATIVE); KETONE NEGATIVE (NEGATIVE); NITRITE NEGATIVE (NEGATIVE); PROTEIN NEGATIVE (NEGATIVE); SPECIFIC GRAVITY 1.015 (1.005-1.020); UROBILINOGEN NORMAL (NORMAL)
[2017-05-15 08:21] LABS: BASOPHILS 0.4 % (0-2); EOSINOPHILS 1.6 % (0-7); HEMATOCRIT 32.2 % (36.0-48.0); HEMOGLOBIN 10.3 g/dL (12-16); IMMATURE GRANULOCYTES 0.1 % (0-5); LYMPHOCYTES 18.8 % (15-50); MCH 30.1 pg (26.0-34.0); MCV 94.2 fL (80.0-100.0); MEAN PLATELET VOLUME 9.9 fL (7.4-10.4); MONOCYTES 15.3 % (2-11); NEUTROPHILS 63.8 % (40-80); PLATELET COUNT 205 10x3/uL (130-400); RBC 3.42 10x6/uL (4.00-5.40); RDW 13.5 % (11.5-14.5); WBC 7.3 10x3/uL (4.8-10.8)
[2017-05-15 08:25] LABS: ALBUMIN 3.1 g/dL (3.4-5.0); ALKALINE PHOSPHATASE 58 U/L (46-116); ALT (SGPT) 55 U/L (10-68); BILIRUBIN - TOTAL 0.45 mg/dL (0.2-1.3); CALC OSMOLALITY 272 mosm/kg (275-300); CALCIUM 9.1 mg/dL (8.5-10.1); CARBON DIOXIDE 31.8 mmol/L (21.0-32.0); CHLORIDE - SERUM 100 mmol/L (98-107); CREATININE - SERUM 0.7 mg/dL (0.6-1.3); POTASSIUM - SERUM 3.5 mmol/L (3.5-5.1); PROTEIN - SERUM 6.3 g/dL (6.4-8.2); SODIUM 138 mmol/L (136-145); UREA NITROGEN 10 mg/dL (7-18); eGFR NON AFRICAN AMERICAN 89 mL/min (90-120)
[2017-05-15 08:29] LABS: GLUCOSE 68 mg/dL (74-106)
[2017-05-15 08:46] LABS: CREATINE KINASE 230 UL (21-215); PRO BNP 1770 pg/mL (0-125)
[2017-05-15 08:48] LABS: CKMB 17.1 U/L (0.0-3.6); TROPONIN-I 3.085 ng/mL (0.000-0.060)
== END 2017-05-15 11:50 | disposition home or self-care (01) ==
LOC: D.ER 07:06
PROVIDERS: Emergency Medicine
DX: R53.1 Weakness (principal); I50.9 Heart failure, unspecified; I25.10 Atherosclerotic heart disease of native coronary artery without angina pectoris; D64.9 Anemia, unspecified; F17.200 Nicotine dependence, unspecified, uncomplicated

== ENCOUNTER → 2017-05-24 09:22 | Outpatient (CLI) | payer MEDICARE, OTHER ==
[2017-05-13 17:05] VITALS: BMI 20.8
--- NOTE | ~2017-05-24 | EC ---
PATIENT:FATMATA DESAI DATE OF SERVICE: 05/24/17 SEX: F MEDICAL RECORD: [id number] DATE OF : 52 LOCATION:[facility] AGE OF PATIENT: 67 ADMISSION DATE: 05/24/17 REFERRING PHYSICIAN: INTERPRETING PHYSICIAN: KENRICK PLAZA MD ECHOCARDIOGRAM REPORT ECHO CHARGES 4 ECHO COMPLETE Date: CLINICAL DIAGNOSIS: PERICARDIAL EFFUSION ECHOCARDIOGRAPHIC MEASUREMENTS (adult normal given) AC root (d.<3.7cm) 3.1 cm LV Septum d (<1.2 cm> 1.5 cm Valve Excursion 1.0 cm LV Septum (systole) 1.8 cm Left Atria (s.<4.0cm> 3.2 cm LVPW d(<1.2cm) 1.6 cm RV (d.<2.3cm) 3.5 cm LVPW (sytole) 2.1 cm LV diastole(<5.6CM) 5.5 cm MV E-F(>70mm/sec) cm LV systole 3.2 cm LVOT Diameter 1.2 cm MV exc.(>10mm) 1.4 cm Est.ejection fraction (50-75%) % DOPPLER: LVIT cm/sec A 119 cm/sec E 110 cm/sec LA cm/sec RVSP 34 mmHg LVOT 127 cm/sec AOP1/2T 677 m/s Asc. Ao 352 cm/sec RVOT 74 cm/sec RA cm/sec PA 230 cm/sec AV Gradient Peak 49.60mmHg AV Mean 28.60mmHg AV Area 0.6 cm MV Gradient Peak 6.81 mmHg MV Mean 2.54 mmHg MV Area cm COMMENTS: Display And Banner Designer: 2 MIRELLA VILLANUEVA [employer] Software Consultant: 4 Dr. Plaza TAPE# PACS Pericardial Effusion N DATE OF SERVICE: PROCEDURE: Transthoracic echocardiogram. FINDINGS: 1. Left ventricle shows left ventricular hypertrophy. Inflow characteristics are consistent with diastolic dysfunction. Ejection fraction is 65%. No regional wall motion abnormalities. 2. The left atrium is normal size, normal function. 3. The tricuspid valve appears to be thickened. The noncoronary cusp appears ECHOCARDIOGRAM REPORT [id number] FATMATA DESAI to have some fusion, making a functionally bicuspid valve. The peak pressure gradient across is 49 mmHg. The mean gradient of 28 mmHg, placing in the moderate aortic valve stenosis range. 4. The mitral valve has mild mitral regurgitation. 5. Tricuspid valve has mild tricuspid regurgitation. The RVSP is mildly elevated at 30 mmHg. 6. Right ventricle is mildly dilated with normal function. 7. The right atrium is moderately dilated with normal function. 8. The pericardium with a history of pericardial effusion appears to be normal. There does not appear to be any significant pericardial effusion or tamponade physiology. TRANSINT:[id number] Voice Confirmation ID: [id number] DOCUMENT ID: [id number] KENRICK PLAZA MD at 1426 CC: [id number] DICTATION DATE: 05/28/17 0727 WASH OPERATOR: 05/28/17 1022 DEP CLI 05/24/17 [place] [address] [place] [address]
== END | disposition home or self-care (01) ==
LOC: D.ECHO 09:22
DX: I31.3 Pericardial effusion (noninflammatory) (principal)

== ENCOUNTER → 2017-06-14 14:20 | Outpatient (CLI) | payer MEDICARE, OTHER ==
[2017-05-13 17:05] VITALS: BMI 20.8
== END | disposition home or self-care (01) ==
LOC: D.MRI 14:20
DX: M47.817 Spondylosis without myelopathy or radiculopathy, lumbosacral region (principal)

== ENCOUNTER → 2017-07-09 17:10 | Outpatient (CLI) | payer MEDICARE, OTHER ==
[2017-05-13 17:05] VITALS: BMI 20.8
[2017-07-09 18:42] LABS: BASOPHILS 0.2 % (0-2); EOSINOPHILS 3.8 % (0-7); HEMATOCRIT 32.4 % (36.0-48.0); HEMOGLOBIN 10.8 g/dL (12-16); IMMATURE GRANULOCYTES 0.4 % (0-5); MCHC 33.3 g/dL (31.0-37.0); MCV 86.9 fL (80.0-100.0); MEAN PLATELET VOLUME 9.8 fL (7.4-10.4); MONOCYTES 13.7 % (2-11); NEUTROPHILS 66.9 % (40-80); RBC 3.73 10x6/uL (4.00-5.40); RDW 13.6 % (11.5-14.5); WBC 10.6 10x3/uL (4.8-10.8)
[2017-07-09 18:57] LABS: CALC OSMOLALITY 267 mosm/kg (275-300); CALCIUM 8.9 mg/dL (8.5-10.1); CARBON DIOXIDE 29.7 mmol/L (21.0-32.0); CHLORIDE - SERUM 94 mmol/L (98-107); CREATININE - SERUM 0.8 mg/dL (0.6-1.3); GLUCOSE 88 mg/dL (74-106); SODIUM 134 mmol/L (136-145); UREA NITROGEN 15 mg/dL (7-18); eGFR NON AFRICAN AMERICAN 76 mL/min (90-120)
[2017-07-09 19:01] LABS: PLATELET COUNT 358 10x3/uL (130-400)
[2017-07-09 19:02] LABS: TROPONIN-I < 0.017 ng/mL (0.000-0.060)
== END | disposition home or self-care (01) ==
LOC: D.LABREF 17:10
PROVIDERS: Internal Medicine Cardiovascular Disease
DX: I25.10 Atherosclerotic heart disease of native coronary artery without angina pectoris (principal); I20.9 Angina pectoris, unspecified

== ENCOUNTER → 2017-07-10 15:02 | Outpatient (CLI) | payer MEDICARE, OTHER ==
[2017-05-13 17:05] VITALS: BMI 20.8
== END | disposition home or self-care (01) ==
LOC: D.MRI 10:00
DX: M25.511 Pain in right shoulder (principal)

== ENCOUNTER → 2017-07-12 12:28 | Outpatient (CLI) | payer MEDICARE, OTHER ==
[2017-05-13 17:05] VITALS: BMI 20.8
--- NOTE | ~2017-07-12 | EC ---
PATIENT:FATMATA DESAI DATE OF SERVICE: 07/12/17 SEX: F MEDICAL RECORD: [id number] DATE OF : 52 LOCATION:[facility] AGE OF PATIENT: 67 ADMISSION DATE: 07/12/17 REFERRING PHYSICIAN: INTERPRETING PHYSICIAN: KENRICK PLAZA MD ECHOCARDIOGRAM REPORT ECHO CHARGES Date: CLINICAL DIAGNOSIS: ECHOCARDIOGRAPHIC MEASUREMENTS (adult normal given) AC root (d.<3.7cm) cm LV Septum d (<1.2 cm> cm Valve Excursion cm LV Septum (systole) cm Left Atria (s.<4.0cm> cm LVPW d(<1.2cm) cm RV (d.<2.3cm) cm LVPW (sytole) cm LV diastole(<5.6CM) cm MV E-F(>70mm/sec) cm LV systole cm LVOT Diameter cm MV exc.(>10mm) cm Est.ejection fraction (50-75%) % DOPPLER: LVIT cm/sec A cm/sec E cm/sec LA cm/sec RVSP mmHg LVOT cm/sec AOP1/2T m/s Asc. Ao cm/sec RVOT cm/sec RA cm/sec PA cm/sec AV Gradient Peak mmHg AV Mean mmHg AV Area cm MV Gradient Peak mmHg MV Mean mmHg MV Area cm COMMENTS: Heel Sander: Ship Pilot Dispatcher: ROSENDO# Pericardial Effusion DATE OF SERVICE: PROCEDURE: Transthoracic echocardiogram. FINDINGS: 1. Left ventricle shown to have moderate concentric left ventricular hypertrophy. In flow characteristics are suggestive of diastolic dysfunction. 2. The ejection fraction is 55% to 60%. 3. The left atrium is normal size, normal function. 4. The aortic valve has thickening and reduced mobility. The peak pressure ECHOCARDIOGRAM REPORT [id number] FATMATA DESAI gradient appears in the 45-50 range. There is mild aortic insufficiency. 5. The mitral valve has trace mitral regurgitation. 6. Tricuspid valve has moderate tricuspid regurgitation. Estimated PA pressures of 40 mmHg. 7. The right ventricle is normal size, normal function. 8. The right atrium is normal size, normal function. 9. There is a moderate circumferential pericardial effusion. There is no evidence of tamponade physiology. CONCLUSIONS: The patient has left ventricular hypertrophy, normal LV systolic function, moderate aortic stenosis with a peak pressure gradient 45-50 mmHg across the aortic valve, mean gradient at 23-26 mmHg. TRANSINT:[id number] Voice Confirmation ID: [id number] DOCUMENT ID: [id number] KENRICK PLAZA MD at 1500 CC: [id number] DICTATION DATE: 07/12/17 1406 FUR DESIGNER: 07/12/17 1823 DEP CLI 07/12/17 [facility] [address] [place] [address]
== END | disposition home or self-care (01) ==
LOC: D.ECHO 07-11 10:35
DX: R07.9 Chest pain, unspecified (principal)

== ENCOUNTER → 2017-07-24 17:19 | Outpatient (CLI) | payer MEDICARE, OTHER ==
[2017-05-13 17:05] VITALS: BMI 20.8
[2017-07-24 19:35] LABS: CHOL - HDL RATIO 3.1 ratio (2.3-4.1); LDL-HDL RATIO 1.8 ratio (1.5-3.5)
== END | disposition home or self-care (01) ==
LOC: D.LABREF 17:19
PROVIDERS: Internal Medicine Cardiovascular Disease
DX: E78.5 Hyperlipidemia, unspecified (principal)

== ENCOUNTER → 2017-08-07 16:17 | Outpatient (CLI) | payer MEDICARE, OTHER ==
[2017-05-13 17:05] VITALS: BMI 20.8
== END | disposition home or self-care (01) ==
LOC: D.MRI 07:30
DX: S80.02XA Contusion of left knee, initial encounter (principal); X58.XXXA Exposure to other specified factors, initial encounter

== ENCOUNTER → 2017-08-20 07:15 | Outpatient (CLI) | payer MEDICARE, OTHER ==
[2017-05-13 17:05] VITALS: BMI 20.8
== END | disposition home or self-care (01) ==
LOC: D.RT 07:15
DX: J44.9 Chronic obstructive pulmonary disease, unspecified (principal)

== ENCOUNTER → 2017-10-09 15:13 | Outpatient (CLI) | payer MEDICARE, OTHER ==
[2017-05-13 17:05] VITALS: BMI 20.8
== END | disposition home or self-care (01) ==
LOC: D.MRI 10-08 14:30
DX: M25.572 Pain in left ankle and joints of left foot (principal)

== ENCOUNTER 2017-10-21 12:16 | Outpatient (CLI) | payer MEDICARE, OTHER ==
[~2017-10-21] VITALS: Ht 157.5 cm; Wt 50.5 kg
--- NOTE | ~2017-10-21 | OP ---
PATIENT NAME: FATMATA DESAI MEDICAL RECORD: [id number] :52 LOCATION:[facility] ADMISSION DATE: SURGEON: ROBBIE MATOS MD DATE OF OPERATION: 10/21/2017 PROCEDURES: 1. Left heart catheterization. 2. Selective coronary angiography. 3. Left ventriculogram. INDICATION: Chest pain compatible with angina, coronary artery disease, previous PTCA stent. PROCEDURE IN DETAIL: After informed consent was obtained and after detailed explanation of risks, benefits as well as alternative therapies, the patient elected to proceed with angiogram and heart catheterization. The right radial area was prepped and draped in normal sterile fashion. Right radial artery was cannulated via modified Seldinger technique with placement of 5-Qatari sheath. All catheters exchanged through this sheath. FINDINGS: The left ventriculogram was performed in standard 30-degree ALCAR[place] view, reveals good cardiac wall motion throughout all segments. Overall ejection fraction estimated 60%. SELECTIVE CORONARY ANGIOGRAPHY: 1. Left main has no significant angiographic disease. 2. Left circumflex has no significant angiographic disease. 3. Right coronary has previously placed stents with no significant restenosis. No disease elsewise at the RCA or its branches. OVERALL IMPRESSION: Wide patency of the previously placed stents in the RCA. No significant disease elsewise. Chest pain is noncardiac in etiology. TRANSINT:[id number] Voice Confirmation ID: [id number] DOCUMENT ID: [id number] ROBBIE MATOS MD at 1806 CC: [id number] DICTATION DATE: 10/21/17 1624 ZYGLO INSPECTOR: 10/21/17 1720 DEP CLI 10/21/17 [place] [id number] [place] [address]
--- NOTE | ~2017-10-21 | HEMODYNAMI ---
PATIENT:FATMATA DESAI MEDICAL RECORD: [id number] : 52 LOCATION:[facility]ARYN ADMISSION DATE: 10/21/17 Generatedon:10/21/201716:34 Patient name: FATMATA DESAI Patient #: [id number] SSN: DO B: 1950 Date of study: 10/21/2017 Page: Of Hemodynamic Procedure Report Patient Data Patient Demographics Procedure consent was obtained First Name: FATMATA Gender: Female Last Name: GISELLE : 1950 [facility] Initial: HUMBERTO Age: 67 year(s) Patient #: [id number] Race: Unknown Additional ID: [id number] Contact details Address: [address] [place] [address] State: [place]: [facility] [place] Zip code: [address] Past Medical History Allergies Allergen Reaction Date Comments Reported Other allergy 05/10/2017 CIPRO, CLINDAMYCIN, KEFLEX, MORPHINE, STATINS Other allergy 05/13/2017 KEFLEX, CIPRO, STATINS, CLINDAMYCIN, MORPHINE, BEE STINGS Antibiotics 10/21/2017 Cephalosporins 10/21/2017 Admission Admission Data Admission Date: 10/21/2017 Admission Time: 12:16 Lab Results Lab Result Date: 10/21/2017 Lab Result Time: 0:00 Biochemistry Name Units Result Min Max BUN mg/dl 11 --(-*--)-- 7 18 Creatinine mg/dl 0.7 --(*---)-- 0.6 1.3 CBC Name Units Result Min Max Hemoglobin g/dl 12.6 -*(----)-- 13.5 17.5 Procedure Procedure Types Cath Procedure Diagnostic Procedure LHC LHC w/Coronaries Procedure Description Procedure Date Procedure Date: 10/21/2017 Procedure Start Time: 16:15 Procedure End Time: 16:24 Procedure Staff Name Function Skyler Vázquez MD Performing Physician Luis Loving RT Monitor Anabel Oconnell RT Scrub Frank Clarke RN Nurse Procedure Data Cath Procedure Fluoroscopy Diagnostic fluoroscopy Total fluoroscopy Time: 1.2 time: 1.2 min min Diagnostic fluoroscopy Total fluoroscopy dose: 240 dose: 240 mGy mGy Contrast Material Contrast Material Type Amount (ml) Isovue 300 55 Entry Location Entry Primary Successful Side Size Upsize Upsize Entry Closure Succes sful Closure Location (Fr) 1 (Fr) 2 (Fr) Remarks Device Remarks Femoral Right 5 Fr Exoseal artery Diagnostic catheters Device Type Used For End Catheter Placement MULTIPACK Pigtail 5 Fr LV Angiography catheter MULTIPACK JL 4.0 5Fr Left Coronary catheter Angiography MULTIPACK 3DRC 5Fr Right Coronary catheter Angiography Procedure Complications No complications Procedure Medications Medication Administration Route Dosage Oxygen etCO2 Nasal cannula 2 l/min Lidocaine 2% added to field 20 Heparin Flush Bag added to field 2 bags (1000units/500ml NS) 0.9% NaCl I.V. 100 ml/hr Versed I.V. 1 mg Dilaudid I.V. 1 mg Versed I.V. 1 mg Dilaudid I.V. 1 mg Versed I.V. 1 mg Hemodynamics Rest HGB: 12.6 (g/dl) Heart Rate: 74 (bpm) Snapshots Pre Cath Intra NCS Post Cath Vital Signs Time Heart Resp SPO2 NIBP (mmHg) Rhythm Pain Sedation Rate (ipm) (%) Status Level (bpm) 16:08:04 62 14 99 174/89(146) NSR 0 (11) 10(A) , No pain 16:12:24 71 12 95 164/84(132) NSR 0 (11) 10(A) , No pain 16:16:42 88 14 93 150/82(119) NSR 0 (11) 10(A) , No pain 16:20:52 94 12 93 151/88(127) NSR 0 (11) 9(A) , No pain 16:33:22 88 14 97 152/84(0) NSR 0 (11) 10(A) , No pain Medications Time Medication Route Dose Verified Delivered Reason Notes Eff ectiveness by by 16:08:31 Oxygen etCO2 2 Skyler Marie used for Nasal l/min Gurpreet Clarke fishing rod mechanic cannula 16:08:38 Lidocaine 2% added 20ml Skyler Holland for local to vial Gurpreet Vázquez MD anesthetic field 16:08:43 Heparin Flush added 2 Skyler Holland used for Bag to bags Gurpreet Vázquez MD procedure (1000units/500ml field NS) 16:08:52 0.9% NaCl I.V. 100 Skyler Marie Per ml/hr Gurpreet Clarke RN physician 16:15:03 Versed I.V. 1 mg Skyler Marie for Gurpreet Clarke RN sedation 16:15:11 Dilaudid I.V. 1 mg Skyler Marie for Gurpreet Clarke RN sedation 16:18:14 Versed I.V. 1 mg Skyler Marie for Gurpreet Clarke RN sedation 16:19:19 Dilaudid I.V. 1 mg Skyler Marie for Gurpreet Clarke RN sedation 16:22:24 Versed I.V. 1 mg Skyler Marie for Gurpreet Clarke RN sedation Procedure Log Time Note 15:47:40 Informed consent obtained and on chart 15:48:01 Anabel Oconnell RT(R) sent for patient. Start room use. 15:48:02 Time tracking: Regular hours (M-F 7:00 - 5:00) 15:48:07 Plan of Care:Hemodynamics will remain stable., Cardiac rhythm will remain stable., Comfort level will be maintained., Respiratory function will remain adequate., Patient/ family verbilizes understanding of procedure., Procedure tolerated without complication., Recovers from procedure without complications.. 16:06:03 Patient received from ED to CCL 2 Alert and oriented. Tansferred to table in Supine position. 16:06:04 Warm blankets applied, and manas hugger turned on for patient comfort. 16:06:04 Correct patient and procedure confirmed by team. 16:06:05 ECG and BP/O2 sat monitors applied to patient. 16:06:06 Vital chart was started 16:06:07 Baseline sample Acquired. 16:06:16 Rhythm: sinus rhythm 16:06:17 Full Disclosure recording started 16:06:23 H&P Date Dictated: 10/21/2017 Within 30 days and on chart.. 16:06:24 Pre-procedure instructions explained to patient. 16:06:24 Pre-op teaching completed and patient verbalized understanding. 16:08:31 Oxygen 2 l/min etCO2 Nasal cannula was administered by Frank Clarke RN; used for procedure; 16:08:38 Lidocaine 2% 20ml vial added to field was administered by Skyler Vázquez MD; for local anesthetic; 16:08:43 Heparin Flush Bag (1000units/500ml NS) 2 bags added to field was administered by Skyler Vázquez MD; used for procedure; 16:08:52 0.9% NaCl 100 ml/hr I.V. was administered by Frank Clarke RN; Per physician; 16:10:29 Family unavailable. 16:10:32 Patient NPO since Breakfast. 16:10:54 Is the patient allergic to Iodine/contrast media? No. 16:11:08 Patient allergic to Antibiotics 16:11:24 Patient allergic to Cephalosporins 16:11:33 Is patient on blood thinner?Yes 16:11:34 Patient diabetic? No. 16:11:36 If diabetic: On Metformin? No 16:11:37 ----Pre-sedation anethsthesia assessment.---- 16:11:39 Previous problem with sedation/anesthesia? No ? 16:11:41 Snore? Yes 16:11:42 Sleep apnea? No 16:12:17 Deviated septum? No 16:12:19 Opens mouth fully? Yes 16:12:20 Sticks out tongue? Yes 16:12:22 Airway obstruction? No ? 16:12:25 Dentures? No ? 16:12:28 Pre procedure: right dorsailis pedis pulse 1+ Palpable, but thready & weak; easily obliterated 16:12:34 Patient pain scale 1/10 cp. 16:12:44 IV patent on arrival in left antecubital with 0.9% NaCl at 10ml/hr. 16:14:31 Lab Result : BUN 11 mg/dl 16:14:31 Lab Result : Creatinine 0.7 mg/dl 16:14:31 Lab Result : Hemoglobin 12.6 g/dl 16:14:34 Lab results completed and on chart. 16:14:37 Right groin area was prepped with chlora-prep and draped in sterile fashion 16:14:38 Alarms reviewed by R. N. 16:14:38 Sharps counted by scrub and verified by R.N. 16:14:41 Physician arrived 16:14:41 --------ALL STOP TIME OUT------ 16:14:42 Final Timeout: patient, procedure, and site verified with staff and physician. All members of the team are in agreement. 16:14:43 Right groin site verified by team. 16:14:46 Physical assessment completed. ASA score P 2 - A patient with mild systemic disease as per Skyler Vázquez MD. 16:14:57 Sedation plan: IV Moderate Sedation Medication:Versed, Dilaudid 16:15:03 Versed 1 mg I.V. was administered by Frank Clarke RN; for sedation; 16:15:11 Dilaudid 1 mg I.V. was administered by Frank Clarke RN; for sedation; 16:15:17 Use device set Femoral Dx 16:15:18 ACIST Syringe (85733) opened to sterile field. 16:15:18 Bag Decanter (2002S) opened to sterile field. 16:15:18 Medline Cath Pack ([id number]) opened to sterile field. 16:15:19 DIAGNOSTIC WIRE .035 260cm J wire (461986) opened to sterile field. 16:15:20 ACIST Hand Control (57562) opened to sterile field. 16:15:21 ACIST Manifold (73174) opened to sterile field. 16:15:21 DIAGNOSTIC Multipack 5Fr catheter set ([id number]) opened to sterile field. 16:15:22 Tegaderm 4 x 4 (1626W) opened to sterile field. 16:15:24 PERCUTANEOUS ENTRY 19GA needle opened to sterile field. 16:15:26 SHEATH Prelude 5Fr 0.035 (GTZ-3O-96-035) opened to sterile field. 16:15:29 Procedure started. 16:15:35 Local anesthetic to right femoral artery with Lidocaine 2% by Skyler Vázquez MD.INITIAL ACCESS ONLY 16:15:44 A 5 Fr sheath was inserted into the Right Femoral artery 16:15:51 A MULTIPACK Pigtail 5 Fr catheter was advanced over the wire and used for LV Angiography. 16:15:55 LV angiography performed. 16:15:57 LV gram done using ALCARAZ 16:16:02 EF : 60 % 16:16:04 Catheter removed. 16:16:12 A MULTIPACK JL 4.0 5Fr catheter was advanced over the wire and used for Left Coronary Angiography. 16:16:16 LCA angiography performed. 16:16:38 Catheter removed. 16:17:33 A MULTIPACK 3DRC 5Fr catheter was advanced over the wire and used for Right Coronary Angiography. 16:17:41 RCA angiography performed. 16:17:49 Catheter removed. 16:18:14 Versed 1 mg I.V. was administered by Frank Clarke RN; for sedation; 16:19:04 Sheath removed intact; hemostasis achieved with Exoseal to the Right Femoral artery. 16:19:06 Procedure ended.(Physican Out) 16:19:19 Dilaudid 1 mg I.V. was administered by Frank Clarke RN; for sedation; 16:19:40 Fluoroscopy time 01.20 minutes. 16::27 Flurop Dose total: 240 16:: Fluoroscopy dose: 240 mGy 16:21:33 Contrast amount:Isovue 300 55ml. 16:21:34 Sharps counted by scrub and verified by R.N. 16:21:35 Insertion/operative site no bleeding no hematoma. 16:21:43 Post-op/insertion site Right Femoral artery dressed using a 4 x 4 and Tegaderm. 16:21:58 Post right femoral artery:stable 16:22:02 Post Procedure Pulses reassessed and unchanged 16:22:04 Post procedure: right dorsailis pedis pulse 1+ Palpable, but thready & weak; easily obliterated. 16:22:07 Post procedure rhythm: sinus rhythm 16:22:08 Post procedure instruction explained to patient.Patient verbalizes understanding. 16:22:24 Versed 1 mg I.V. was administered by Frank Clarke RN; for sedation; 16:22:26 EXOSEAL 5Fr (EX500) opened to sterile field. 16:22:39 Procedure and supply charges have been captured, reviewed, submitted and are correct. 16:22:44 Procedure Complication : No complications 16:22:58 Vital chart was stopped 16:23:00 See physician's report for complete and final results. 16:23:47 Report given to Pre/Post Procedure Room. 16:23:59 Patient transfered to Pre/Post Procedure Room with Stretcher. 16:24:01 Procedure ended. 16:24:01 Full Disclosure recording stopped 16:24:03 End room use (Document Last) Device Usage Item Name Manufacture Quantity Catalog Number Hospital Part Current M inimal Lot# / Charge Number Stock Stock Serial# Code ACIST Syringe Acist 1 [id number] 619703 619269 [id number] 2 0 (71709) ShopTap Bag Decanter Microtek 1 714961 65734 300138 5 (2002S) Medical Inc. Medline Cath Cardinal 1 [id number] 928247 20516 276232 5 Pack Health ([id number]) DIAGNOSTIC WIRE [facility] [place] 1 961742 703355 945573 903817 3 0 .035 260cm J wire (150388) ACIST Hand Acist 1 43288 689056 652402 471189 5 Control (56370) Medical Systems Inc ACIST Manifold Acist 1 35334 102640 792063 732208 5 (34868) Medical Systems Inc DIAGNOSTIC Cardinal 1 [id number] 531437 11791 610425 3 0 Multipack 5Fr Health catheter set (BT1166) Tegaderm 4 x 4 3M 1 1626W 462194 873591 731863 5 (1626W) PERCUTANEOUS Cook Medical 1 [id number] 980945 159068 5 ENTRY 19GA needle SHEATH Prelude Merit 1 CTT-2A-68-035 687901 665698 899719 5 5Fr 0.035 Medical ([id number]-2M-39-035) MULTIPACK Cardinal 1 843910 5 Pigtail 5 Fr Health catheter MULTIPACK JL Cardinal 1 272774 5 4.0 5Fr Health catheter MULTIPACK 3DRC Cardinal 1 239077 5 5Fr catheter Health EXOSEAL 5Fr Cardinal 1 EX500 607027 132036 100064 1 0 (EX500) Health Signature Audit [place] Stage Time Signature Unsigned Intra-Procedure 10/21/2017 Luis Loving RT(Omayra) 4:34:48 PM Signatures Monitor : Luis Loving RT Signature : Date : Time : [place] [id number] [place] [address]
[2017-10-21 12:46] LABS: BASOPHILS 0.8 % (0-2); HEMATOCRIT 39.6 % (36.0-48.0); HEMOGLOBIN 12.6 g/dL (12-16); IMMATURE GRANULOCYTES 0.2 % (0-5); LYMPHOCYTES 29.9 % (15-50); MCH 26.4 pg (26.0-34.0); MCHC 31.8 g/dL (31.0-37.0); MEAN PLATELET VOLUME 9.2 fL (7.4-10.4); MONOCYTES 11.9 % (2-11); NEUTROPHILS 55.2 % (40-80); RBC 4.77 10x6/uL (4.00-5.40); WBC 6.7 10x3/uL (4.8-10.8)
[2017-10-21 12:59] LABS: ALBUMIN 3.7 g/dL (3.4-5.0); ALKALINE PHOSPHATASE 68 U/L (46-116); ALT (SGPT) 42 U/L (10-68); BILIRUBIN - TOTAL 0.15 mg/dL (0.2-1.3); CALC OSMOLALITY 268 mosm/kg (275-300); CALCIUM 8.3 mg/dL (8.5-10.1); CHLORIDE - SERUM 102 mmol/L (98-107); CREATININE - SERUM 0.7 mg/dL (0.6-1.3); GLUCOSE 98 mg/dL (74-106); PLATELET COUNT 235 10x3/uL (130-400); POTASSIUM - SERUM 3.7 mmol/L (3.5-5.1); PROTEIN - SERUM 6.6 g/dL (6.4-8.2); SODIUM 135 mmol/L (136-145); UREA NITROGEN 11 mg/dL (7-18); eGFR NON AFRICAN AMERICAN 89 mL/min (90-120)
[2017-10-21 13:09] LABS: CKMB 1.5 U/L (0.0-3.6); CREATINE KINASE 45 UL (21-215); PRO BNP 135 pg/mL (0-125); TROPONIN-I < 0.017 ng/mL (0.000-0.060)
[2017-10-21 14:53] VITALS: Ht 157.5 cm; Wt 50.5 kg
[2017-10-21 16:36] VITALS: BP 151/80
== END 2017-10-21 19:08 ==
LOC: D.CATH 12:16 → D.ER 12:16 → D.CATH 19:08
PROVIDERS: Emergency Medicine
DX: R07.89 Other chest pain (principal); I25.10 Atherosclerotic heart disease of native coronary artery without angina pectoris; Z95.5 Presence of coronary angioplasty implant and graft; Z01.812 Encounter for preprocedural laboratory examination

== ENCOUNTER → 2017-11-14 17:04 | Outpatient (CLI) | payer MEDICARE, OTHER ==
[2017-10-21 14:53] VITALS: BMI 20.3
[2017-11-14 18:58] LABS: CHOL - HDL RATIO 3.3 ratio (2.3-4.1); LDL-HDL RATIO 2.2 ratio (1.5-3.5)
== END | disposition home or self-care (01) ==
LOC: D.LABREF 17:04
PROVIDERS: Internal Medicine Cardiovascular Disease
DX: E78.5 Hyperlipidemia, unspecified (principal)

== ENCOUNTER 2017-11-28 06:55 | Day surgery (SDC) | payer MEDICARE, OTHER ==
[2017-11-27 10:55] LABS: HEMATOCRIT 40.2 % (36.0-48.0); HEMOGLOBIN 13.4 g/dL (12-16); MCH 28.8 pg (26.0-34.0); MCHC 33.3 g/dL (31.0-37.0); MCV 86.3 fL (80.0-100.0); MEAN PLATELET VOLUME 9.6 fL (7.4-10.4); RBC 4.66 10x6/uL (4.00-5.40); RDW 16.5 % (11.5-14.5); WBC 5.4 10x3/uL (4.8-10.8)
[2017-11-27 11:00] LABS: CALC OSMOLALITY 271 mosm/kg (275-300); CALCIUM 9.4 mg/dL (8.5-10.1); CARBON DIOXIDE 33.4 mmol/L (21.0-32.0); CHLORIDE - SERUM 99 mmol/L (98-107); CREATININE - SERUM 0.7 mg/dL (0.6-1.3); GLUCOSE 93 mg/dL (74-106); POTASSIUM - SERUM 3.7 mmol/L (3.5-5.1); SODIUM 137 mmol/L (136-145); UREA NITROGEN 8 mg/dL (7-18); eGFR NON AFRICAN AMERICAN 89 mL/min (90-120)
[~2017-11-28] VITALS: Ht 154.9 cm; Wt 50.9 kg
--- NOTE | ~2017-11-28 | OP ---
PATIENT NAME: FATMATA DESAI MEDICAL RECORD: [id number] :52 LOCATION:[facility] ADMISSION DATE: SURGEON: DOUG DANIELS MD DATE OF OPERATION: 11/28/2017 PREOPERATIVE DIAGNOSES: Lumbar spinal stenosis L3-L4 right, L4-L5 right with bilateral foraminal stenosis L4-L5. PROCEDURES: Lumbar laminotomy, medial facetectomy and foraminotomy at L3-L4 right and L4-L5 right. Bilateral sublaminar decompression L4-L5 with bilateral foraminotomies. SURGEON: Doug Daniels MD DESCRIPTION AND TECHNIQUE: After induction of general endotracheal anesthesia, the patient was rolled prone on a Ramu frame. Lumbar spine was prepped and draped in usual sterile fashion. Fluoroscopic x-ray and spinal needle localized the L4-L5 interspace on the right side. A stab incision was created with #11 blade. Series of dilators was used to advance a METRx retractor to the L4-L5 interspace on the right side. The level was confirmed with fluoroscopic x-ray. A Midas-Nayan drill and microscope were used to perform a laminotomy, medial facetectomy and foraminotomy at L4-L5 on the right. Hypertrophied ligamentum flavum was removed with Cloward rongeurs. The METRx retractor was tilted to the opposite side. The spinous process was undermined with a Midas-Nayan drill. The ligamentum flavum was moved in the sublaminar space and foraminotomy was carried on the opposite side. Next, the METRx retractor was tilted upward towards the L3-L4 interspace. Laminotomy, medial facetectomy and foraminotomy were carried out on the right side at L3-L4. Hypertrophied ligamentum flavum was removed with Cloward rongeurs. This appeared to relieve compression on the dura. Meticulous hemostasis was maintained throughout the wound. The wound was irrigated with copious amounts of Ancef irrigant solution. The fascia was closed with 2-0 Vicryl suture, the subdermal layer was closed with 3-0 Vicryl suture. The skin was closed with mellissa. A sterile dressing was applied to the wound. The patient was awakened in good condition and taken to recovery. All counts were reported as correct. Estimated blood loss was minimal. TRANSINT:[id number] Voice Confirmation ID: [id number] DOCUMENT ID: [id number] DOUG DANIELS MD at 1251 CC: [id number] DICTATION DATE: 11/28/17 162 DURALUMIN MECHANIC: 11/28/17 1641 [facility] 11/29/17 [place] [id number] [place] [id number]
[~2017-11-28 06:55] MED LIST changes: +COZAAR50 MG; +COZAAR50 MG PO
[2017-11-28] MEDS ORDERED: REPATHA SY140 MG/1 M SC (07:17)
[2017-11-28] MEDS ORDERED: KLOR-CON 1010 MEQ PO (07:18)
[2017-11-28] MEDS ORDERED: MAG-OXIDE400 MG PO (07:19)
[2017-11-28] MEDS ORDERED: CHANTIX 1 MG TAB1 MG PO (07:19)
[2017-11-28] MEDS ORDERED: PLAVIX75 MG PO (07:20)
[2017-11-28 07:21] VITALS: BP 155/81; BMI 21.5
[2017-11-28] MEDS ORDERED: DILAUDID2 MG PO (16:21)
[2017-11-28 16:57] VITALS: BP 115/54
[2017-11-28 17:36] VITALS: Ht 154.9 cm; Wt 50.9 kg
[2017-11-28 21:45] VITALS: BP 115/54
[2017-11-29 05:09] VITALS: BP 112/59
[2017-11-29 08:13] VITALS: BP 123/67
== END 2017-11-29 10:00 | disposition home or self-care (01) ==
LOC: D.MS 06:55 → D.OPS 06:55 → D.PAN 09:00 → D.OPS 09:00 → D.MS 16:47 → D.OPS 11-29 10:00
PROVIDERS: Anesthesiology
DX: M48.061 Spinal stenosis, lumbar region without neurogenic claudication (principal); Z01.812 Encounter for preprocedural laboratory examination

== ENCOUNTER → 2017-12-05 16:40 | Outpatient (CLI) | payer MEDICARE, OTHER ==
[2017-11-28 17:36] VITALS: BMI 21.2
[~2017-12-05 16:40] MED LIST changes: +CHANTIX 1 MG TAB1 MG PO; +DILAUDID2 MG PO; +KLOR-CON 1010 MEQ PO; +MAG-OXIDE400 MG PO; +REPATHA SY140 MG/1 M SC
[2017-12-05 17:44] LABS: LDL-HDL RATIO 1.7 ratio (1.5-3.5)
== END | disposition home or self-care (01) ==
LOC: D.LABREF 16:40
PROVIDERS: Internal Medicine Cardiovascular Disease
DX: I10 Essential (primary) hypertension (principal)

== ENCOUNTER → 2017-12-23 11:57 | Outpatient (CLI) | payer MEDICARE, OTHER ==
[2017-11-28 17:36] VITALS: BMI 21.2
== END | disposition home or self-care (01) ==
LOC: D.CT 11:57
DX: M25.552 Pain in left hip (principal)

== ENCOUNTER → 2018-01-03 13:54 | Outpatient (CLI) | payer MEDICARE, OTHER ==
[2017-11-28 17:36] VITALS: BMI 21.2
== END | disposition home or self-care (01) ==
LOC: D.MRI 13:54
DX: S32.000A Wedge compression fracture of unspecified lumbar vertebra, initial encounter for closed fracture (principal); S22.000A Wedge compression fracture of unspecified thoracic vertebra, initial encounter for closed fracture; X58.XXXA Exposure to other specified factors, initial encounter

== ENCOUNTER → 2018-03-31 15:05 | Outpatient (CLI) | payer MEDICARE, OTHER ==
[2017-11-28 17:36] VITALS: BMI 21.2
== END | disposition home or self-care (01) ==
LOC: D.MRI 15:05
DX: M54.16 Radiculopathy, lumbar region (principal)

== ENCOUNTER 2018-05-13 03:38 | Observation (INO) | payer MEDICARE, OTHER ==
[~2018-05-13] VITALS: Ht 154.9 cm; Wt 63.5 kg
[~2018-05-13 03:38] MED LIST changes: -AZULFIDINE500 MG; +AZULFIDINE500 MG PO; -COZAAR50 MG
[2018-05-13 04:03] LABS: BASOPHILS 0.5 % (0-2); EOSINOPHILS 6.2 % (0-7); HEMATOCRIT 34.2 % (36.0-48.0); HEMOGLOBIN 11.3 g/dL (12-16); IMMATURE GRANULOCYTES 0.1 % (0-5); LYMPHOCYTES 19.9 % (15-50); MCH 30.6 pg (26.0-34.0); MCV 92.7 fL (80.0-100.0); MEAN PLATELET VOLUME 9.9 fL (7.4-10.4); MONOCYTES 9.4 % (2-11); NEUTROPHILS 63.9 % (40-80); PLATELET COUNT 224 10x3/uL (130-400); RBC 3.69 10x6/uL (4.00-5.40); WBC 8.2 10x3/uL (4.8-10.8)
[2018-05-13 04:11] LABS: INR 1.02 (0.85-1.17); PROTIME 12.9 SECONDS (11.6-15.0)
[2018-05-13 04:16] LABS: ALBUMIN 3.3 g/dL (3.4-5.0); ALKALINE PHOSPHATASE 64 U/L (46-116); ALT (SGPT) 28 U/L (10-68); BILIRUBIN - TOTAL 0.37 mg/dL (0.2-1.3); CALC OSMOLALITY 284 mosm/kg (275-300); CALCIUM 8.6 mg/dL (8.5-10.1); CHLORIDE - SERUM 106 mmol/L (98-107); CREATININE - SERUM 0.7 mg/dL (0.6-1.3); GLUCOSE 118 mg/dL (74-106); POTASSIUM - SERUM 3.4 mmol/L (3.5-5.1); PROTEIN - SERUM 6.3 g/dL (6.4-8.2); SODIUM 142 mmol/L (136-145); UREA NITROGEN 14 mg/dL (7-18); eGFR NON AFRICAN AMERICAN 89 mL/min (90-120)
[2018-05-13 04:28] LABS: CKMB 0.9 U/L (0.0-3.6); CREATINE KINASE 29 UL (21-215); MAGNESIUM - SERUM 1.9 mg/dL (1.8-2.4); THYROID STIMULATING HORMONE 0.25 uIU/mL (0.36-3.74)
[2018-05-13 04:30] LABS: TROPONIN-I < 0.017 ng/mL (0.000-0.060)
[2018-05-13 04:51] VITALS: BP 129/62
[2018-05-13 04:52] LABS: UDS - AMPHET NEGATIVE QUAL (NEGATIVE); UDS - BARB NEGATIVE QUAL (NEGATIVE); UDS - BENZO POSITIVE QUAL (NEGATIVE); UDS - COCAINE NEGATIVE QUAL (NEGATIVE); UDS - OPIATE POSITIVE QUAL (NEGATIVE); UDS - PCP NEGATIVE QUAL (NEGATIVE); UDS - THC POSITIVE QUAL (NEGATIVE)
[2018-05-13 04:55] LABS: APPEARANCE CLEAR (CLEAR); BILIRUBIN NEGATIVE (NEGATIVE); COLOR YELLOW (YELLOW); GLUCOSE NEGATIVE (NEGATIVE); KETONE NEGATIVE (NEGATIVE); NITRITE NEGATIVE (NEGATIVE); PROTEIN NEGATIVE (NEGATIVE); UROBILINOGEN NORMAL (NORMAL)
[2018-05-13 04:57] LABS: BACTERIA FEW /hpf (NONE SEEN); EPITHELIAL CELLS 0-5 /hpf (0-5); RED CELLS - URINE NONE SEEN /hpf (0-5); WHITE CELLS - URINE 0-5 /hpf (0-5)
--- NOTE | 2018-05-13 05:23 | NUR ---
CT HEAD AND C SPINE NEGATIVE. C COLLAR REMOVED FROM PT PER EDP DOWNEN INSTRUCTION.
[2018-05-13 05:46] VITALS: BP 146/62
--- NOTE | 2018-05-13 05:55 | NUR ---
PT REORIENTED TO PLACE AND TIME. PT SITTING UP IN BED. NO S/S OF ACUTE DISTRESS NOTED AT THIS TIME.
--- NOTE | 2018-05-13 06:40 | NUR ---
RECEIVED FROM ER VIA STRETCHER. ORIENTED X1 TO PERSON. TOOK A FEW MINUTES TO GET HER AWAKE. REPEATS THE SAME WORD MULTIPLE TIMES. PUT ON FALL PRECAUTIONS FOR FALL AT HOME. NO BRUISES NOTED. THERE IS A BRUISE ON THE SMALL OF HER BACK WITH A CLEAR TEGADERM DRESSING OVER IT. IV IS IN LEFT FA WITH NS INFUSING AT 200ML/HR STARTED IN ER. ORIENTED TO CALL LIGHT AND PLACED IN REACH. LEFT DOOR OPEN TO MONITOR CLOSELY.
[2018-05-13 08:00] VITALS: BP 123/57
[2018-05-13 12:07] LABS: BASOPHILS 0.6 % (0-2); EOSINOPHILS 5.3 % (0-7); HEMOGLOBIN 11.4 g/dL (12-16); IMMATURE GRANULOCYTES 0.3 % (0-5); LYMPHOCYTES 18.3 % (15-50); MCH 30.5 pg (26.0-34.0); MCHC 32.6 g/dL (31.0-37.0); MCV 93.6 fL (80.0-100.0); MONOCYTES 9.2 % (2-11); NEUTROPHILS 66.3 % (40-80); PLATELET COUNT 236 10x3/uL (130-400); RBC 3.74 10x6/uL (4.00-5.40); RDW 14.1 % (11.5-14.5)
[2018-05-13 12:16] LABS: ALBUMIN 3.4 g/dL (3.4-5.0); ALKALINE PHOSPHATASE 64 U/L (46-116); ALT (SGPT) 24 U/L (10-68); BILIRUBIN - TOTAL 0.35 mg/dL (0.2-1.3); CALC OSMOLALITY 284 mosm/kg (275-300); CALCIUM 8.4 mg/dL (8.5-10.1); CARBON DIOXIDE 29.7 mmol/L (21.0-32.0); CHLORIDE - SERUM 109 mmol/L (98-107); CKMB 1.4 U/L (0.0-3.6); CREATINE KINASE 47 UL (21-215); GLUCOSE 89 mg/dL (74-106); PROTEIN - SERUM 5.9 g/dL (6.4-8.2); SODIUM 144 mmol/L (136-145); UREA NITROGEN 11 mg/dL (7-18)
[2018-05-13 12:17] LABS: CREATININE - SERUM 0.5 mg/dL (0.6-1.3); POTASSIUM - SERUM 4.1 mmol/L (3.5-5.1); TROPONIN-I < 0.017 ng/mL (0.000-0.060); eGFR NON AFRICAN AMERICAN > 90 mL/min (90-120)
[2018-05-13 15:10] VITALS: BP 123/57; BMI 26.5
--- NOTE | 2018-05-13 15:38 | NUR ---
ASSESSMENT COMPLETE RESP UNLABORED TELEMETRY INTACT SR RATE 79 LFA IV OF NS PATENT PER PUMP SITE FREE OF REDNESS OCCLUSIVE DRSG INTACT WILL CONTINUE TO MONITOR
[2018-05-13 16:00] VITALS: BP 148/70
[2018-05-13 16:21] LABS: CKMB 1.6 U/L (0.0-3.6); CREATINE KINASE 78 UL (21-215)
[2018-05-13 16:23] LABS: TROPONIN-I < 0.017 ng/mL (0.000-0.060)
--- NOTE | 2018-05-13 16:43 | NUR ---
REFUSED SCD'S PER LITTLE/SHARON
[2018-05-13 20:00] VITALS: BP 161/105
[2018-05-13 22:38] LABS: CKMB 2.5 U/L (0.0-3.6); CREATINE KINASE 136 UL (21-215)
[2018-05-13 22:43] LABS: TROPONIN-I < 0.017 ng/mL (0.000-0.060)
--- NOTE | 2018-05-14 01:12 | NUR ---
TYLENOL 650 MG GIVEN FOR C/O HIGUERA. RATES PAIN AT AN 8 ON PAIN SCALE.
--- NOTE | 2018-05-14 03:16 | NUR ---
I have reviewed this patient and I concur with the Shift Assessment completed by the Licensed Practical Nurse today this shift.
[2018-05-14 04:00] VITALS: BP 138/66
[2018-05-14 04:06] LABS: BASOPHILS 0.5 % (0-2); EOSINOPHILS 4.8 % (0-7); HEMATOCRIT 31.1 % (36.0-48.0); IMMATURE GRANULOCYTES 0.2 % (0-5); LYMPHOCYTES 23.2 % (15-50); MCH 29.9 pg (26.0-34.0); MCHC 32.2 g/dL (31.0-37.0); MCV 93.1 fL (80.0-100.0); MEAN PLATELET VOLUME 9.8 fL (7.4-10.4); MONOCYTES 9.5 % (2-11); NEUTROPHILS 61.8 % (40-80); PLATELET COUNT 219 10x3/uL (130-400); RBC 3.34 10x6/uL (4.00-5.40); WBC 6.5 10x3/uL (4.8-10.8)
[2018-05-14 04:35] LABS: ALKALINE PHOSPHATASE 58 U/L (46-116); ALT (SGPT) 30 U/L (10-68); BILIRUBIN - TOTAL 0.48 mg/dL (0.2-1.3); CARBON DIOXIDE 24.7 mmol/L (21.0-32.0); CHLORIDE - SERUM 110 mmol/L (98-107); CKMB 1.3 U/L (0.0-3.6); CREATINE KINASE 56 UL (21-215); CREATININE - SERUM 0.6 mg/dL (0.6-1.3); GLUCOSE 85 mg/dL (74-106); MAGNESIUM - SERUM 1.7 mg/dL (1.8-2.4); PROTEIN - SERUM 5.7 g/dL (6.4-8.2); SODIUM 144 mmol/L (136-145); TROPONIN-I 0.021 ng/mL (0.000-0.060); eGFR NON AFRICAN AMERICAN > 90 mL/min (90-120)
[2018-05-14 04:38] LABS: CALC OSMOLALITY 283 mosm/kg (275-300); POTASSIUM - SERUM 3.3 mmol/L (3.5-5.1); UREA NITROGEN 8 mg/dL (7-18)
--- NOTE | 2018-05-14 04:41 | NUR ---
IV TO LEFT ARM SWOLLEN, IV CATH REMOVED, TIP INTACT. UNABLE TO RESITE IV BY TWO DIFFERENT NURSES, WILL ASK VENOUS ACCESS NURSE ON DAY SHIFT TO TRY.
--- NOTE | 2018-05-14 07:18 | NUR ---
PT LIGHT GOING OFF, WENT TO SEE WHAT PT NEEDS. PT ASKING FOR SOMETHING FOR PAIN AND NAUSEA, INFORMED PT THAT WE NEEDED TO START NEW IV, AND I WOULD ALSO CHECK TO SEE IF SHE HAD SOMETHING FOR NAUSEA. CALL LIGHT IN REACH, NAD NOTED,W ILL CONTINUE TO MONITOR.
--- NOTE | 2018-05-14 08:37 | NUR ---
PT TOOK AM MEDS REFUSED TO TAKE PLAVIX, PT STATED THAT SHE IS NOT TAKING THAT ANYMORE. PT DENIES ANY NEEDS AT THIS TIME. CALL LIGHT IN REACH, NAD NOTED,W ILL CONTINUE TO MONITOR.
[2018-05-14] MEDS ORDERED: LASIX40 MG PO (08:50)
[2018-05-14] MEDS ORDERED: VOLTAREN75 MG PO (08:51)
[2018-05-14] MEDS ORDERED: CYMBALTA60 MG PO (08:56)
[2018-05-14] MEDS ORDERED: SODIUM BICARBO650 MG PO (08:58)
[2018-05-14 09:01] VITALS: Ht 154.9 cm; Wt 63.5 kg
[2018-05-14 09:54] VITALS: BP 130/64
--- NOTE | 2018-05-14 13:20 | NUR ---
PT'S LIGHT GOING OFF WENT TO ANSWER CALL LIGHT. PT WANTING TO GO TO THE BATHROOM, HELPED PT UP TO BATHROOM, STANDBY ASSIST. PT HAS STEADY GATE. HELPED PT BACK TO BED, PT DENIES ANY NEEDS AT THIS TIME. CALL LIGHT IN REACH, NAD NOTED, WILL CONINTUE TO MONITOR.
[2018-05-14 14:10] VITALS: BP 167/74
--- NOTE | 2018-05-14 14:13 | MORECARE ---
CASE MANAGEMENT DISCHARGE SUMMARY PATIENT: FATMATA DESAI UNIT: [id number] ADM DATE: 05/13/18 AGE: 67 : 51 SEX: F ROOM/BED: D.2107 AUTHOR: JENNIFER RUIZ PHYSICIAN: REFERRING PHYSICIAN: TRISH AVILEZ MD DATE OF SERVICE: 05/14/18 Discharge Plan Patient Name: FATMATA DESAI [facility] [facility] 1950 Planned Disposition: Home with Home Health Anticipated Discharge Date: Discharge Date: Expected LOS: Initial Reviewer: [email or web address] Initial Review Date: 05/13/2018 Generated: 05/14/18 3:13 pm Patient Name: FATMATA DESAI Page 50490 at 1413 All edits/amendments must be made on the electronic document DICTATION DATE: 05/14/18 1413 HEALTH [facility]UB ATTENDANT: BRENNEN 05/14/18 1413 RPT#: [id number] DC DATE: STATUS: ADM IN [facility] [address] [place] [address] END OF REPORT
--- NOTE | 2018-05-14 14:32 | MORECARE ---
CASE MANAGEMENT DISCHARGE SUMMARY PATIENT: FATMATA DESAI UNIT: [id number] ADM DATE: 05/13/18 AGE: 67 : 51 SEX: F ROOM/BED: D.2104 AUTHOR: JENNIFER RUIZ PHYSICIAN: REFERRING PHYSICIAN: TRISH AVILEZ MD DATE OF SERVICE: 05/14/18 Discharge Plan Patient Name: FATMATA DESAI Facility: [facility]:[place] : 1950 Planned Disposition: Home with Home Health Anticipated Discharge Date: Discharge Date: Expected LOS: Initial Reviewer: [email or web address] Initial Review Date: 05/13/2018 Generated: 05/14/18 3:32 pm DCPIA - Discharge Planning Initial Assessment Updated by [email or web address]: Pradeep Antonio on 05/14/18 2:27 pm * Is the patient Alert and Oriented? Yes * How many steps to enter\exit or inside your home? * PCP DR. WILLETT * Pharmacy [facility] * Preadmission Environment Home Alone * ADLs Independent * Equipment Cane Rolling Walker * Other Equipment WALKER HAS WHEELS SEAT AND BRAKES NO MEDICAL EQUIPMENT PROVIDER PREFERENCE * List name and contact numbers for known caregivers / representatives who currently or will assist patient after discharge: GERMAINE PALACIOS, SON, CHANDAN ROMERO, FRIEND, * Verbal permission to speak to the caregivers and representatives has been obtained from the patient. N/A * Community resources currently utilized Home Health * Please name any agencies selected above. [facility] * Additional services required to return to the preadmission environment? No * Can the patient safely return to the preadmission environment? Yes * Has this patient been hospitalized within the prior 30 days at any hospital? Yes Last DP export: 05/14/18 1:13 p Patient Name: FATMATA DESAI Page 21858 at 1432 All edits/amendments must be made on the electronic document DICTATION DATE: 05/14/18 1432 ACTIVITIES COUNSELOR: BRENNEN 05/14/18 1432 RPT#: [id number] DC DATE: STATUS: ADM IN [facility] [address] [place] [address] END OF REPORT
--- NOTE | 2018-05-14 14:42 | MORECARE ---
CASE MANAGEMENT DISCHARGE SUMMARY PATIENT: FATMATA DESAI UNIT: [id number] ADM DATE: 05/13/18 AGE: 67 : 51 SEX: F ROOM/BED: D.2832 AUTHOR: SARA,DOC PHYSICIAN: REFERRING PHYSICIAN: TRISH AVILEZ MD DATE OF SERVICE: 05/14/18 Discharge Plan Patient Name: FATMATA DESAI Facility: [facility]:[place] : 1950 Planned Disposition: Home with Home Health Anticipated Discharge Date: Discharge Date: Expected LOS: Initial Reviewer: [email or web address] Initial Review Date: 05/13/2018 Generated: 05/14/18 3:41 pm Comments DCP- Discharge Planning Updated by [email or web address]: Pradeep Antonio on 05/14/18 1:[address] Patient Name: FATMATA DESAI Admission Status: ER Accout number: [id number] Admission Date: 05-13-2018 : 1950 Admission Diagnosis: Attending: TRISH AVILEZ Current LOS: 1 Anticipated DC Date: Planned Disposition: Home with Home Health Primary Insurance: MEDICARE A & B PLANNED EXTERNAL PROVIDER: [facility] Discharge Planning Comments: CM RECEIVED ORDER FOR ALCOHOL / DRUG USE ASSESSMENT. CM MET WITH PT IN ROOM TO DISCUSS DISCHARGE PLANNING AND NEEDS. PT REPORTS LIVING AT HOME ALONE. PT HAS A FRIEND THAT STAYS WITH HER IF NEEDED. PT HAS WALKER WITH WHEELS SEAT AND BRAKES WELL A CANE. PT HAS NO MEDICAL EQUIPMENT PROVIDER PREFERENCE. PT HAS HOME HEALTH WITH [facility] FOR "PT, OT, NURSING AND AIDE." PT HAS NO OTHER OUTSIDE SERVICES ASSISTING IN THE HOME. CM DISCUSSED AVAILABILITY OF HOME HEALTH, REHAB SERVICES AND MEDICAL EQUIPMENT. PT DENIES DISCHARGE NEEDS, REPORTS HER FRIEND WILL PICK HER UP FOR DISCHARGE HOME. CM DISCUSSED ORDER. PT DENIES ILLEGAL DRUG USE, DENIES MISUSING HER LEGALLY PRESCRIBED MEDICATIONS. PT REPORTS BEING SOBER FOR 2 YEARS NOW. PT REPORTS HAVING PAIN CONTRACT WITH DR. TONY SILVA IN [place] AND WOULD DO NOTHING TO VIOLATE IT. PT DECLINED DRUG AND ALCOHOL ABUSE COMMUNITY SUPPORT AND TREATMENT INFORMATION. PT REPORTS SHE WANTS TO GO HOME TODAY. PT SIGNED CHOICE LISTING FOR [facility]. CM CALLED RENE AT [facility], , VERIFIED PT IS ACTIVE WITH HOME HEALTH. KATHY FROM [facility] ARRIVED AND TOOK HOSPITAL INFORMATION FOR HOME HEALTH RESUMPTION. FOR DISCHARGE, FAX DISCHARGE INFORMATION TO [facility] AT [phone], NOTIFY [facility] AT [phone]. CM TO CONTINUE TO FOLLOW AND ASSIST IF NEEDED. Mechanical Design Technician: Pradeep Antonio DCPIA - Discharge Planning Initial Assessment Updated by [email or web address]: Pradeep Antonio on 05/14/18 2:27 pm * Is the patient Alert and Oriented? Yes * How many steps to enter\\exit or inside your home? * PCP DR. WILLETT * Pharmacy [facility] MA[facility] ORDER * Preadmission Environment Home Alone * ADLs Independent * Equipment Cane Rolling Walker * Other Equipment WALKER HAS WHEELS SEAT AND BRAKES NO MEDICAL EQUIPMENT PROVIDER PREFERENCE * List name and contact numbers for known caregivers / representatives who currently or will assist patient after discharge: GERMAINE PALACIOS, SON, CHANDAN ROMERO, FRIEND, * Verbal permission to speak to the caregivers and representatives has been obtained from the patient. N/A * Community resources currently utilized Home Health * Please name any agencies selected above. [facility] * Additional services required to return to the preadmission environment? No * Can the patient safely return to the preadmission environment? Yes * Has this patient been hospitalized within the prior 30 days at any hospital? Yes Coverage Notice Reviewer: [email or web address] - Pradeep Antonio Notice Issued Date-Time: 05/14/2018 11:25 Notice Type: Patient Choice Letter Notice Delivered To: Patient Relationship to Patient: Orthopedic Mechanic Name: Delivery Method: HAND - Hand Delivered Camila Days: Prior Verbal Notification: Recipient Understood Notice: Recipient Signature: Med Rec Note Co-signed by Attending: Coverage Notice Comment: [facility] Last DP export: 05/14/18 1:32 p Patient Name: FATMATA DESAI Page 54856 at 1442 All edits/amendments must be made on the electronic document DICTATION DATE: 05/14/18 1441 CASHIER SUPERVISOR: BRENNEN 05/14/18 1441 RPT#: [id number] DC DATE: STATUS: ADM IN [facility] [address] [place] [address] END OF REPORT
--- NOTE | 2018-05-14 16:16 | NUR ---
PROVIDED VERBAL AND WRITTEN DISCHARGE TEACHING TO PT AND FEMALE FRIEND AT BEDSIDE, BOTH VERBALIZED UNDERSTANDING REGARDING TEACHING. 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 PT WILL NOTIFY THIS NURSE WHEN READY FOR WHEELCHAIR.
--- NOTE | 2018-05-14 16:48 | NUR ---
PT LEFT UNIT VIA WHEELCHAIR, WITH ALL BELONGINGS, ACCOMPANIED BY FEMALE FRIEND. NAD NOTED.
--- NOTE | 2018-05-14 17:12 | MORECARE ---
CASE MANAGEMENT DISCHARGE SUMMARY PATIENT: FATMATA DESAI UNIT: [id number] ADM DATE: 05/13/18 AGE: 67 : 52 SEX: F ROOM/BED: D.6961 AUTHOR: JENNIFER RUIZ PHYSICIAN: REFERRING PHYSICIAN: TRISH AVILEZ MD DATE OF SERVICE: 05/14/18 Discharge Plan Patient Name: FATMATA DESAI Facility: [facility]:[place] : 1950 Planned Disposition: Home with Home Health Anticipated Discharge Date: 05/14/18 Discharge Date: 05/14/2018 Expected LOS: 1 Initial Reviewer: [email or web address] Initial Review Date: 05/13/2018 Generated: 05/14/18 6:12 pm Comments DCP- Discharge Planning Updated by [id number]: Pradeep Antonio on 05/14/18 4:[address] Patient Name: FATMATA DESAI Admission Status: ER Accout number: [id number] Admission Date: 05-13-2018 : 1950 Admission Diagnosis: Attending: TRISH AVILEZ Current LOS: 1 Anticipated DC Date: Planned Disposition: Home with Home Health Primary Insurance: MEDICARE A & B PLANNED EXTERNAL PROVIDER: [facility] Discharge Planning Comments: CM RECEIVED ORDER FOR ALCOHOL / DRUG USE ASSESSMENT. CM MET WITH PT IN ROOM TO DISCUSS DISCHARGE PLANNING AND NEEDS. PT REPORTS LIVING AT HOME ALONE. PT HAS A FRIEND THAT STAYS WITH HER IF NEEDED. PT HAS WALKER WITH WHEELS SEAT AND BRAKES WELL A CANE. PT HAS NO MEDICAL EQUIPMENT PROVIDER PREFERENCE. PT HAS HOME HEALTH WITH [facility] FOR "PT, OT, NURSING AND AIDE." PT HAS NO OTHER OUTSIDE SERVICES ASSISTING IN THE HOME. CM DISCUSSED AVAILABILITY OF HOME HEALTH, REHAB SERVICES AND MEDICAL EQUIPMENT. PT DENIES DISCHARGE NEEDS, REPORTS HER FRIEND WILL PICK HER UP FOR DISCHARGE HOME. CM DISCUSSED ORDER. PT DENIES ILLEGAL DRUG USE, DENIES MISUSING HER LEGALLY PRESCRIBED MEDICATIONS. PT REPORTS BEING SOBER FOR 2 YEARS NOW. PT REPORTS HAVING PAIN CONTRACT WITH DR. TONY SILVA IN [place] AND WOULD DO NOTHING TO VIOLATE IT. PT DECLINED DRUG AND ALCOHOL ABUSE COMMUNITY SUPPORT AND TREATMENT INFORMATION. PT REPORTS SHE WANTS TO GO HOME TODAY. PT SIGNED CHOICE LISTING FOR [facility]. CM CALLED RENE AT [facility], , VERIFIED PT IS ACTIVE WITH HOME HEALTH. KATHY FROM [facility] ARRIVED AND TOOK HOSPITAL INFORMATION FOR HOME HEALTH RESUMPTION. FOR DISCHARGE, FAX DISCHARGE INFORMATION TO [facility] AT [phone], NOTIFY [facility] AT [phone]. CM TO CONTINUE TO FOLLOW AND ASSIST IF NEEDED. Coach Tour Driver: Pradeep Antonio Appended by Pradeep Antonio on 05/14/2018 17:10 CDT: CM FAXED DISCHARGE INFORMATION TO [facility] AT [phone] FOR RESUMPTION OF HOME HEALTH CARE. Coach Tour Driver: Pradeep Antonio DCPIA - Discharge Planning Initial Assessment Updated by [email or web address]: Pradeep Antonio on 05/14/18 2:27 pm * Is the patient Alert and Oriented? Yes * How many steps to enter\\exit or inside your home? * PCP DR. WILLETT * Pharmacy [facility] ON [facility] MA[address] ORDER * Preadmission Environment Home Alone * ADLs Independent * Equipment Cane Rolling Walker * Other Equipment WALKER HAS WHEELS SEAT AND BRAKES NO MEDICAL EQUIPMENT PROVIDER PREFERENCE * List name and contact numbers for known caregivers / representatives who currently or will assist patient after discharge: GERMAINE PALACIOS, SON, CHANDAN ROMERO, FRIEND, * Verbal permission to speak to the caregivers and representatives has been obtained from the patient. N/A * Community resources currently utilized Home Health * Please name any agencies selected above. [facility] * Additional services required to return to the preadmission environment? No * Can the patient safely return to the preadmission environment? Yes * Has this patient been hospitalized within the prior 30 days at any hospital? Yes External Providers External Provider: [facility] Next Contact Date: 05/14/2018 Service Request Date: Service Type: Resolution: Reviewer: Comments: Coverage Notice Reviewer: [email or web address] - Pradeep Antonio Notice Issued Date-Time: 05/14/2018 11:25 Notice Type: Patient Choice Letter Notice Delivered To: Patient Relationship to Patient: Automation Test Developer Name: Delivery Method: HAND - Hand Delivered Camila Days: Prior Verbal Notification: Recipient Understood Notice: Recipient Signature: Med Rec Note Co-signed by Attending: Coverage Notice Comment: [facility] Last DP export: 05/14/18 1:42 p Patient Name: FATMATA DESAI Page [id number] at 1712 All edits/amendments must be made on the electronic document DICTATION DATE: 05/14/181711 DISPENSING AND MEASURING OPTICIAN: BRENNEN 05/14/181711 RPT#: [id number] DC DATE:05/14/18 STATUS: DIS IN [facility] [address] [place] [address] END OF REPORT
--- NOTE | 2018-05-18 10:39 | EC ---
PATIENT:FATMATA DESAI DATE OF SERVICE: 05/13/18 SEX: F MEDICAL RECORD: [id number] DATE OF : [birth year] LOCATION:D.M2 D.210 AGE OF PATIENT: 67 ADMISSION DATE: 05/13/18 REFERRING PHYSICIAN: INTERPRETING PHYSICIAN: EUGENIO SAM MD ECHOCARDIOGRAM REPORT ECHO CHARGES 4 ECHO COMPLETE Date: 05/14/18 CLINICAL DIAGNOSIS: SYNCOPE ECHOCARDIOGRAPHIC MEASUREMENTS (adult normal given) AC root (d.<3.7cm) 2.8 cm LV Septum d (<1.2 cm> 0.8 cm Valve Excursion 0.9 cm LV Septum (systole) 0.9 cm Left Atria (s.<4.0cm> 3.0 cm LVPW d(<1.2cm) 1.2 cm RV (d.<2.3cm) 2.8 cm LVPW (sytole) 1.8 cm LV diastole(<5.6CM) 4.3 cm MV E-F(>70mm/sec) cm LV systole 3.1 cm LVOT Diameter 1.9 cm MV exc.(>10mm) cm Est.ejection fraction (50-75%) % DOPPLER: LVIT cm/sec A 89 cm/sec E 111 cm/sec LA cm/sec RVSP 33.2 mmHg LVOT 78 cm/sec AOP1/2T m/s Asc. Ao 292 cm/sec RVOT 59 cm/sec RA cm/sec PA 131 cm/sec AV Gradient Peak 34.5 mmHg AV Mean 17.8 mmHg AV Area 0.7 cm MV Gradient Peak 6.2 mmHg MV Mean 2.6 mmHg MV Area cm COMMENTS: Director Of Group Sales: Holly ARITA Hand Folder: 3 Dr. Rodney TAPE# PACS Pericardial Effusion N DATE OF SERVICE: Adequate 2-D echo, color flow and spectral Doppler, and M-Mode. No LVH. LV internal dimensions are normal. Wall motion is normal. EF is greater than 55%. Aortic valve is calcified with restriction of leaflet motion. Peak gradient 34 mmHg putting this in the byfv-wc-ibrapkxw range. Left atrium is normal 3.0 cm. Mitral valve shows no prolapse. Mild MR. Right-sided chamber is grossly normal. Trace TR. ECHOCARDIOGRAM REPORT [id number] FATMATA DESAI TRANSINT:[id number] Voice Confirmation ID: [id number] DOCUMENT ID: [id number] EUGENIO SAM MD at 1039 CC: [id number] DICTATION DATE: 05/15/18 1255 METROLOGY SPECIALIST: 05/15/18 1346 DIS IN 05/14/18 [place] [id number] [place] [id number]
== END 2018-05-14 16:48 | disposition home health service (06) ==
LOC: D.ER 03:38 → OBSVTIME 06:02 → D.M2 06:02
PROVIDERS: Family Medicine; ADMIT Family Medicine; ATTEND Family Medicine
DX: R55 Syncope and collapse (principal); F11.10 Opioid abuse, uncomplicated; F12.10 Cannabis abuse, uncomplicated; I25.10 Atherosclerotic heart disease of native coronary artery without angina pectoris; I10 Essential (primary) hypertension; G89.29 Other chronic pain; T14.8XXA Other injury of unspecified body region, initial encounter; W19.XXXA Unspecified fall, initial encounter; M19.90 Unspecified osteoarthritis, unspecified site; F32.9 Major depressive disorder, single episode, unspecified; F41.9 Anxiety disorder, unspecified; Z72.0 Tobacco use

== ENCOUNTER → 2018-05-30 11:57 | Outpatient (CLI) | payer MEDICARE, OTHER ==
[2018-05-14 09:01] VITALS: BMI 26.4
[~2018-05-30 11:57] MED LIST changes: +SODIUM BICARBO650 MG PO
--- NOTE | 2018-06-01 09:13 | EC ---
PATIENT:FATMATA DESAI DATE OF SERVICE: 05/30/18 SEX: F MEDICAL RECORD: [id number] DATE OF : [birth year] LOCATION:D.HCC AGE OF PATIENT: 68 ADMISSION DATE: 05/30/18 REFERRING PHYSICIAN: INTERPRETING PHYSICIAN: EUGENIO SAM MD ECHOCARDIOGRAM REPORT ECHO CHARGES 4 ECHO COMPLETE Date: 05/30/18 CLINICAL DIAGNOSIS: HTN , HX OF /MR/TR ECHOCARDIOGRAPHIC MEASUREMENTS (adult normal given) AC root (d.<3.7cm) 3.7 cm LV Septum d (<1.2 cm> 1.2 cm Valve Excursion 1.3 cm LV Septum (systole) 1.4 cm Left Atria (s.<4.0cm> 3.5 cm LVPW d(<1.2cm) 1.4 cm RV (d.<2.3cm) 3.0 cm LVPW (sytole) 1.9 cm LV diastole(<5.6CM) 4.5 cm MV E-F(>70mm/sec) cm LV systole 3.0 cm LVOT Diameter 1.7 cm MV exc.(>10mm) 0.8 cm Est.ejection fraction (50-75%) % DOPPLER: LVIT cm/sec A 95.0 cm/sec E 81.0 cm/sec LA cm/sec RVSP 40 mmHg LVOT 86 cm/sec AOP1/2T m/s Asc. Ao 289 cm/sec RVOT 57 cm/sec RA cm/sec PA 157 cm/sec AV Gradient Peak 33.37mmHg AV Mean 19.85mmHg AV Area 0.7 cm MV Gradient Peak 3.32 mmHg MV Mean 1.56 mmHg MV Area cm COMMENTS: Lock And Dam Operator: 2 MIRELLA VILLANUEVA Exercise Physiology Professor: 3 Dr. Rodney TAPE# PACS Pericardial Effusion N DATE OF SERVICE: Adequate 2D, color flow, spectral Doppler, and M-Mode Borderline LVH. LV internal dimensions are normal. Wall motion is normal. EF is greater than or equal to 55%. Aortic valve is calcified, restriction of leaflet motion. Peak gradient 33 mmHg putting this in [id number]-ku-osiyjwcf with mild AI with color flow imaging. Left atrium normal at 3.5 cm. Mitral valve shows no prolapse. Trace MR. Right-sided chambers are grossly normal. Mild TR. ECHOCARDIOGRAM REPORT [id number] FATMATA DESAI TRANSINT:[id number] Voice Confirmation ID: [id number] DOCUMENT ID: [id number] EUGENIO SAM MD at 0913 CC: [id number] DICTATION DATE: 05/31/18 1016 CAR UNLOADER HELPER: 05/31/18 1234 DEP CLI 05/30/18 [place] [id number] [place] [id number]
== END | disposition home or self-care (01) ==
LOC: D.HCCARDIO 05-28 12:30
PROVIDERS: ATTEND Internal Medicine Interventional Cardiology
DX: I10 Essential (primary) hypertension (principal)